=== PATIENT | female | born 1975 | race Caucasian/White ===

== ENCOUNTER → 2019-03-27 | Day surgery (SDC) | payer OTHER | END | disposition home or self-care (01) | LOC: JRADUS-SUR 07:51 | PROVIDERS: ATTEND Obstetrics & Gynecology | DX: Z53.8 Procedure and treatment not carried out for other reasons (principal) | CPT/HCPCS: 36415; 84702 ==

== ENCOUNTER 2020-03-13 13:32 | Emergency (ER) | payer OTHER ==
[2020-03-13 13:41] VITALS: BP 152/80; PULSE 100; TEMP 98; BMI 34.9
--- OUTSIDE RECORDS SUMMARY | 2020-03-13 13:56 | XMS ---
:1975 Author Organization [facility] Care Team Providers Name Role Phone Chumaceiro, Manuel Unavailable Unavailable Chumaceiro, Manuel Unavailable Unavailable Chumaceiro, Manuel Unavailable Unavailable Chumaceiro, Manuel Unavailable Unavailable Chumaceiro, Manuel Unavailable Unavailable Chumaceiro, Manuel Unavailable Unavailable Chumaceiro, Manuel Unavailable Unavailable Chumaceiro, Manuel Unavailable Unavailable Re-disclosure Warning The records that you are about to access may contain information from federally- assisted alcohol or drug abuse programs. If such information is present, then the following federally mandated warning applies: This information has been disclosed to you from records protected by federal confidentiality rules (42 CFR part 2). The federal rules prohibit you from making any further disclosure of this information unless further disclosure is expressly permitted by the written consent of the person to whom it pertains or as otherwise permitted by 42 CFR part 2. A general authorization for the release of medical or other information is NOT sufficient for this purpose. The Federal rules restrict any use of the information to criminally investigate or prosecute any alcohol or drug abuse patient.The records that you are about to access may contain highly sensitive health information, the redisclosure of which is protected by Article 27-F of the [place] Public Health law. If you continue you may haveaccess to information: Regarding HIV / AIDS; Provided by facilities licensed or operated by the [place] [facility] Office of Mental Health; or Provided by the [place] [facility] Office for People With Developmental Disabilities. If such information is present, then the following [place] [facility] mandated warning applies: This information has been disclosed to you from confidential records which are protected by state law. State law prohibits you from making any further disclosure of this information without the specific written consent of the person to whom it pertains, or as otherwise permitted by law. Any unauthorized further disclosure in violation of state law may result in a fine or halfway sentence or both. A general authorization for the release of medical or other information is NOT sufficient authorization for further disclosure. Allergies and Adverse Reactions Type Description Substance Reaction Status Data Source(s ) Drug allergy aspirin Aspirin Active [facility] ([facility], ) Encounters Encounter Providers Location Date Indications Data Source(s ) Attender: Manuel 02/24/2020 MED[facility] ([facility] 12:00:00 AM [facility], ) EDT Office Attender: Manuel 02/24/2020 12:00:00 AM EDT [facility] ([facility], ) Office Immunizations Vaccine Date Status Description Data Source(s) New in 2011. IIV4 03/24/2018 12:00:00 completed ME DGEN ([facility] EDT Medical, ) Medications Medication Brand Start Product Dose Route Administrative Pharmacy [facility] Indications Reaction Description Data Name Date Form Instructions Instructions Source(s) Dextrometho DEXTRO 07/15/ SYRUP 240 complet DEXTR OMETHOR MEDGEN ( rphan 3 METHOR 2019 ed SIMMS-PROMETH [facility] MG/ML / SIMMS-P 12:00: AZINE Medical , Promethazin ROMETH 00 AM PC) e AZINE: EST Hydrochlori [id number] de 1.25 MG/ML Oral Solution DEXTROMETHO RPHAN-PROME THAZINE:991 528 IPRATROPIUM 07/15/ SPRAY 1 complet IPRATRO PIUM MEDGEN (St NASAL:77485 2019 ed NASAL [facility] 44 12:00: Medical, 00 AM PC) EST Ergocalcife VITAMI 05/29/ complet VITAMI N D2 MEDGEN ( rol 71755 N 2016 ed [facility] UNT Oral D2:136 12:00: Medical , Capsule 7410 00 AM PC) VITAMIN EST D2:[id number] Insurance Providers Payer name Policy type Policy ID Covered Covered green party's Policy P radha / Coverage green party ID relationship to Peoples Inf ormation type peoples AFF[employer]ITY [id number] SP [id number] MEDICAID OF [id number] [place] [id number] 1 [id number] 500 HEALTH PLAN Problems, Conditions, and Diagnoses Code Display Name Description Problem Type Effective Data Sour ce(s) Dates J06.9 Acute upper ACUTE UPPER Problem 07/15/2019 MED[facility] ([facility] respiratory RESPIRATORY 12:00:00 AM [facility] infection, INFECTION, [facility], ) unspecified UNSPECIFIED D50.8 Other iron OTHER IRON Problem 10/24/2018 MEDGEN (St deficiency anemias DEFICIENCY ANEMIAS 12:00:00 AM [facility], ) B30.8 Other viral OTHER VIRAL Problem 04/23/2018 MEDGEN (St conjunctivitis CONJUNCTIVITIS 12:00:[address] [facility], ) Z23 Encounter for ENCOUNTER FOR Problem 03/24/2018 MEDGEN ( St immunization IMMUNIZATION 12:00:00 AM [facility], ) E55.9 Vitamin D VITAMIN D Problem 07/03/2017 MEDGEN ([address] deficiency, DEFICIENCY, 12:00:00 AM [facility] unspecified UNSPECIFIED [facility], ) D64.9 Anemia, unspecified ANEMIA, UNSPECIFIED Problem 017 MEDGEN (St 12:00:00 AM [facility], ) Z00.00 Encounter for ENCOUNTER FOR Problem 05/29/2017 MEDGEN ( St general adult GENERAL ADULT 12:00:00 AM [facility] medical examination MEDICAL EXAMINATION [facility], ) without abnormal WITHOUT ABNORMAL findings FINDINGS Surgeries/Procedures Procedure Description Date Indications Data Source(s) Documentation of current 02/24/2020 MED GEN ([facility] medications (procedure) 12:00:00 AM EDT [facility], ) OFFICE OUTPATIENT VISIT 02/24/2020 MEDG EN ([facility] 15 MINUTES 12:00:00 AM [facility], ) Documentation of current 11/12/2019 MED GEN ([facility] medications (procedure) 12:00:00 AM EDT [facility], ) Documentation of current 11/12/2019 MED GEN ([facility] medications (procedure) 12:00:00 AM EDT [facility], ) OFFICE OUTPATIENT VISIT 11/12/2019 MEDG EN ([facility] 15 MINUTES 12:00:00 AM [facility], ) COLLECTION VENOUS BLOOD 11/12/2019 MEDG EN ([facility] VENIPUNCTURE 12:00:00 AM [facility], ) Documentation of current 08/20/2019 MED GEN ([facility] medications (procedure) 12:00:00 AM EST Coco harper, ) Documentation of current 08/20/2019 MED GEN ([facility] medications (procedure) 12:00:00 AM LEANNE [facility], ) OFFICE OUTPATIENT VISIT 08/20/2019 MEDG EN ([facility] 15 MINUTES 12:00:00 AM [facility], ) INFLUENZA VACCINE 08/20/2019 MEDGEN ([facility] 12:00:00 AM [facility], ) IMADM PRQ ID SUBQ/IM NJXS 08/20/2019 ME DGEN ([facility] 1 VACCINE 12:00:00 AM [facility], ) COLLECTION VENOUS BLOOD 08/20/2019 MEDG EN ([facility] VENIPUNCTURE 12:00:00 AM [facility], ) Documentation of current 07/15/2019 MED GEN ([facility] medications (procedure) 12:00:00 AM LEANNE harper, ) Documentation of current 07/15/2019 MED GEN ([facility] medications (procedure) 12:00:00 AM LEANNE harper, ) Documentation of current 07/15/2019 MED GEN ([facility] medications (procedure) 12:00:00 AM EST [facility]oco [facility]per, ) Documentation of current 07/15/2019 MED GEN ([facility] medications (procedure) 12:00:00 AM LEANNE harper, ) Documentation of current 07/15/2019 MED GEN ([facility] medications (procedure) 12:00:00 AM EST [facility], ) OFFICE OUTPATIENT VISIT 07/15/2019 MEDG EN ([facility] 10 MINUTES 12:00:00 AM [facility], ) Documentation of current 05/06/2019 MED GEN ([facility] medications (procedure) 12:00:00 AM EST Coco harper, ) Documentation of current 05/06/2019 MED GEN ([facility] medications (procedure) 12:00:00 AM LEANNE harper, ) OFFICE OUTPATIENT VISIT 05/06/2019 MEDG EN ([facility] 10 MINUTES 12:00:00 AM EST Medical, ) Documentation of current 01/21/2019 MED GEN ([facility] medications (procedure) 12:00:00 AM [facility], ) Documentation of current 01/21/2019 MED GEN ([facility] medications (procedure) 12:00:00 AM ED[facility], ) Documentation of current 01/21/2019 MED GEN ([facility] medications (procedure) 12:00:00 AM [facility], ) OFFICE OUTPATIENT VISIT 01/21/2019 MEDG EN ([facility] 15 MINUTES 12:00:00 AM ED Medical, ) Documentation of current 10/24/2018 MED GEN ([facility] (procedure) [facility]00:[facility] Documentation of current 10/24/2018 MED GEN ([facility] medications (procedure) 12:00:00 AM EDT [facility], ) OFFICE OUTPATIENT VISIT 10/24/2018 MEDG EN ([facility] 25 MINUTES 12:00:00 AM ED Medical, ) COLLECTION VENOUS BLOOD 10/24/2018 MEDG EN ([facility] VENIPUNCTURE 12:00:00 AM ED Medical, ) Documentation of current 05/27/2018 MED GEN ([facility] medications (procedure) 12:00:00 AM EST edical, ) Documentation of current 05/27/2018 MED GEN ([facility] medications (procedure) 12:00:00 AM EST edical, ) OFFICE OUTPATIENT VISIT 05/27/2018 MEDG EN ([facility] 15 MINUTES 12:00:00 AM EST Medical, PC) COLLECTION VENOUS BLOOD 05/27/2018 MEDG EN ([facility] VENIPUNCTURE 12:00:00 AM EST Medical, PC) Documentation of current 04/23/2018 MED GEN ([facility] medications (procedure) 12:00:00 AM EST edical, ) OFFICE OUTPATIENT VISIT 04/23/2018 MEDG EN ([facility] 15 MINUTES 12:00:00 AM EST Medical, PC) Documentation of current 03/24/2018 MED GEN ([facility] medications (procedure) 12:00:00 AM EDT edical, PC) Documentation of current 03/24/2018 MED GEN ([facility] medications (procedure) 12:00:00 AM EDT [facility], ) OFFICE OUTPATIENT VISIT 03/24/2018 MEDG EN ([facility] 15 MINUTES 12:00:00 AM [facility], ) INFLUENZA VACCINE 03/24/2018 MEDGEN ([facility] 12:00:00 AM [facility], ) IMADM PRQ ID SUBQ/IM NJXS 03/24/2018 ME DGEN ([facility] 1 VACCINE 12:00:00 AM [facility], ) Documentation of current 07/03/2017 MED GEN ([facility] medications (procedure) 12:00:00 AM EST [facility], ) Documentation of current 07/03/2017 MED GEN ([facility] medications (procedure) 12:00:00 AM EST [facility], ) Documentation of current 07/03/2017 MED GEN ([facility] medications (procedure) 12:00:00 AM EST [facility], ) Documentation of current 07/03/2017 MED GEN ([facility] medications (procedure) 12:00:00 AM EST [facility], ) Documentation of current 07/03/2017 MED GEN ([facility] medications (procedure) 12:00:00 AM EST [facility], ) Documentation of current 07/03/2017 MED GEN ([facility] medications (procedure) 12:00:00 AM EST [facility], ) OFFICE OUTPATIENT VISIT 07/03/2017 MEDG EN ([facility] 15 MINUTES 12:00:00 AM [facility], ) Documentation of current 05/29/2017 MED GEN ([facility] medications (procedure) 12:00:00 AM EST [facility], ) Documentation of current 05/29/2017 MED GEN ([facility] medications (procedure) 12:00:00 AM EST [facility], ) Documentation of current 05/29/2017 MED GEN ([facility] medications (procedure) 12:00:00 AM EST [facility], ) COLLECTION VENOUS BLOOD 05/29/2017 MEDG EN ([facility] VENIPUNCTURE 12:00:00 AM [facility], ) Results ID Date Data Source [id number] 11/12/2019 12:00:00 AM EDT [facility] ([facility], ) Name Value Range Interpretation Description Data Sup porting Code Source(s) Document(s ) Iron 316 ug/dL Normal (applies to MEDGEN (St Bind.Cap.(TIBC non-numeric [facility] ) results) Medical, ) UIBC 293 ug/dL Normal (applies to MEDGEN (St non-numeric [facility] results) [facility], ) Iron 23 ug/dL Below low normal MEDGEN (St [Mass/volume] [facility] in Serum or Medical, ) Plasma Iron 7 % Below lower panic MEDGEN (St saturation limits [facility] [Mass [facility], ) Fraction] in Serum or Plasma ID Date Data Source [id number] 11/12/2019 12:00:00 AM EDT [facility] ([facility], ) Name Value Range Interpretation Description Data Sup porting Code Source(s) Document(s ) Leukocytes 6.5 Normal (applies MEDGEN (St [#/volume] in x10E3/uL to non-numeric [facility] Blood by results) Medical, ) Automated count Hemoglobin 12.0 Normal (applies MEDGEN (St [Mass/volume] in g/dL to non-numeric [facility] Blood results) [facility], ) Erythrocytes 4.29 Normal (applies MEDGEN (St [#/volume] in x10E6/uL to non-numeric [facility] Blood by results) [facility], ) Automated count Hematocrit 37.1 % Normal (applies MEDGEN (St [Volume to non-numeric [facility]'s Fraction] of results) [facility], ) Blood by Automated count MCV 87 fL Normal (applies MEDGEN (St to non-numeric [facility] results) [facility], ) MCH 28.0 pg Normal (applies MEDGEN (St to non-numeric [facility] results) Medical, ) RDW 15.0 % Normal (applies MEDGEN (St to non-numeric [facility] results) Medical, ) MCHC 32.3 Normal (applies MEDGEN (St g/dL to non-numeric [facility] results) [facility], ) Platelets 495 Above high normal MEDGEN (St [#/area] in x10E3/uL [facility] Blood by [facility], ) Microscopy high power field Neutrophils [#] 66 % Normal (applies MEDGEN ( St in Body fluid by to non-numeric [facility] Manual count results) [facility], ) Lymphs 25 % Normal (applies MEDGEN (St to non-numeric [facility]'s results) [facility], ) Eos 1 % Normal (applies MEDGEN (St to non-numeric [facility]'s results) [facility], ) Monocytes 8 % Normal (applies MEDGEN (St [#/volume] in to non-numeric [facility] Cord blood results) [facility]) Basos 0 % Normal (applies MEDGEN (St to non-numeric [facility] results) [facility]) Neutrophils 4.3 Normal (applies MEDGEN (St (Absolute) x10E3/uL to non-numeric [facility] results) [facility], ) Lymphs 1.6 Normal (applies MEDGEN (St (Absolute) x10E3/uL to non-numeric [facility] results) [facility]) Monocytes(Absolu 0.5 Normal (applies MEDGEN (St te) x10E3/uL to non-numeric [facility] results) [facility]) Eos (Absolute) 0.1 Normal (applies MEDGEN (S t x10E3/uL to non-numeric [facility] results) [facility], ) Immature 0 % Normal (applies MEDGEN (St Granulocytes to non-numeric Y[facility]'s results) [facility]) Baso (Absolute) 0.0 Normal (applies MEDGEN ( St x10E3/uL to non-numeric [facility] results) [facility]) Immature Grans 0.0 Normal (applies MEDGEN (S t (Abs) x10E3/uL to non-numeric [facility] results) [facility]) ID Date Data Source [id number] 08/20/2019 12:00:00 AM EST MED[facility] ([facility]) Name Value Range Interpretation Description Data Sup porting Code Source(s) Document(s ) Vitamin D, 16.6 Below low normal MEDGEN (St 25-Hydroxy ng/mL [facility]) ID Date Data Source [id number] 08/20/2019 12:00:00 AM EST [facility] ([facility]) Name Value Range Interpretation Description Data Sup porting Code Source(s) Document(s ) Iron 378 ug/dL Normal (applies to MEDGEN (St Bind.Cap.(TIBC non-numeric [facility]'s ) results) [facility], ) UIBC 358 ug/dL Normal (applies to MEDGEN (St non-numeric [facility] results) [facility]) Iron 20 ug/dL Below low normal MEDGEN (St [Mass/volume] [facility] in Serum or Medical, ) Plasma Iron 5 % Below lower panic MEDGEN (St saturation limits [facility] [[facility], ) Fraction] in Serum or Plasma ID Date Data Source [id number] 08/20/2019 12:00:00 AM EST [facility] ([facility], ) Name Value Range Interpretation Description Data Sup porting Code Source(s) Document(s ) Leukocytes 5.7 Normal (applies MEDGEN (St [#/volume] in x10E3/uL to non-numeric [facility] Blood by results) Medical, ) Automated count Hemoglobin 10.0 Below low normal MEDGEN (St [Mass/volume] in g/dL [facility] Blood [facility], ) Erythrocytes 3.92 Normal (applies MEDGEN (St [#/volume] in x10E6/uL to non-numeric [facility] Blood by results) [facility], ) Automated count Hematocrit 31.2 % Below low normal MEDGEN (St [Volume [facility] Fraction] of [facility], ) Blood by Automated count MCH 25.5 pg Below low normal MEDGEN ([facility], ) MCV 80 fL Normal (applies MEDGEN (St to non-numeric [facility]'s results) [facility], ) RDW 15.3 % Normal (applies MEDGEN (St to non-numeric [facility] results) [facility], ) MCHC 32.1 Normal (applies MEDGEN (St g/dL to non-numeric [facility] results) [facility], ) Platelets 396 Normal (applies MEDGEN (St [#/area] in x10E3/uL to non-numeric [facility] Blood by results) [facility], ) Microscopy high power field Lymphs 28 % Normal (applies MEDGEN (St to non-numeric [facility] results) [facility], ) Neutrophils [#] 63 % Normal (applies MEDGEN ( St in Body fluid by to non-numeric [facility] Manual count results) [facility], ) Monocytes 6 % Normal (applies MEDGEN (St [#/volume] in to non-numeric [facility] Cord blood results) [facility], ) Eos 3 % Normal (applies MEDGEN (St to non-numeric [facility] results) [facility], ) Basos 0 % Normal (applies MEDGEN (St to non-numeric [facility]'s results) [facility], ) Neutrophils 3.6 Normal (applies MEDGEN (St (Absolute) x10E3/uL to non-numeric [facility] results) [facility], ) Lymphs 1.6 Normal (applies MEDGEN (St (Absolute) x10E3/uL to non-numeric [facility]'s results) [facility], ) Monocytes(Absolu 0.3 Normal (applies MEDGEN (St te) x10E3/uL to non-numeric [facility] results) [facility], ) Baso (Absolute) 0.0 Normal (applies MEDGEN ( St x10E3/uL to non-numeric [facility]'s results) [facility], ) Eos (Absolute) 0.2 Normal (applies MEDGEN (S t x10E3/uL to non-numeric [facility] results) [facility], ) Immature Grans 0.0 Normal (applies MEDGEN (S t (Abs) x10E3/uL to non-numeric [facility] results) [facility], ) Immature 0 % Normal (applies MEDGEN (St Granulocytes to non-numeric [facility] results) [facility], ) ID Date Data Source [id number] 01/21/2019 12:00:00 AM EDT [facility] ([facility], ) Name Value Range Interpretation Description Data Sup porting Code Source(s) Document(s ) Leukocytes 7.7 Normal (applies MEDGEN (St [#/volume] in x10E3/uL to non-numeric [facility] Blood by results) [facility], ) Automated count Erythrocytes 4.01 Normal (applies MEDGEN (St [#/volume] in x10E6/uL to non-numeric [facility] Blood by results) [facility], ) Automated count Hemoglobin 10.5 Below low normal MEDGEN (St [Mass/volume] in g/dL [facility] Blood [facility], ) Hematocrit 33.2 % Below low normal MEDGEN (St [Volume [facility] Fraction] of [facility], ) Blood by Automated count MCV 83 fL Normal (applies MEDGEN (St to non-numeric [facility]'s results) [facility], ) MCH 26.2 pg Below low normal MED[facility] ([facility], ) MCHC 31.6 Normal (applies MEDGEN (St g/dL to non-numeric Y[facility]'s results) [facility], ) RDW 14.7 % Normal (applies MEDGEN (St to non-numeric [facility] results) Medical, ) Neutrophils [#] 64 % Normal (applies MEDGEN ( St in Body fluid by to non-numeric [facility] Manual count results) [facility], ) Platelets 409 Normal (applies MEDGEN (St [#/area] in x10E3/uL to non-numeric [facility] Blood by results) [facility], ) Microscopy high power field Lymphs 26 % Normal (applies MEDGEN (St to non-numeric Y[facility]'s results) [facility], ) Eos 1 % Normal (applies MEDGEN (St to non-numeric [facility]'s results) [facility], ) Monocytes 9 % Normal (applies MEDGEN (St [#/volume] in to non-numeric [facility] Cord blood results) [facility], ) Basos 0 % Normal (applies MEDGEN (St to non-numeric [facility]'s results) [facility], ) Neutrophils 4.9 Normal (applies MEDGEN (St (Absolute) x10E3/uL to non-numeric [facility] results) [facility], ) Lymphs 2.0 Normal (applies MEDGEN (St (Absolute) x10E3/uL to non-numeric [facility] results) [facility], ) Monocytes(Absolu 0.7 Normal (applies MEDGEN (St te) x10E3/uL to non-numeric [facility] results) [facility], ) Eos (Absolute) 0.1 Normal (applies MEDGEN (S t x10E3/uL to non-numeric [facility]'s results) [facility], ) Immature 0 % Normal (applies MEDGEN (St Granulocytes to non-numeric [facility]'s results) [facility], ) Baso (Absolute) 0.0 Normal (applies MEDGEN ( St x10E3/uL to non-numeric [facility]'s results) [facility], ) Immature Grans 0.0 Normal (applies MEDGEN (S t (Abs) x10E3/uL to non-numeric [facility] results) [facility], ) ID Date Data Source [id number] 10/24/2018 12:00:00 AM EDT [facility] ([facility], ) Name Value Range Interpretation Description Data Sup porting Code Source(s) Document(s ) Vitamin D, 14.8 Below low normal MEDGEN (St 25-Hydroxy ng/mL [facility]) ID Date Data Source [id number] 10/24/2018 12:00:00 AM EDT [facility] ([facility], ) Name Value Range Interpretation Code Description Data Viola rce(s) Supporting Document(s ) TSH 0.844 Normal (applies to MEDGEN (St uIU/mL non-numeric results) [facility], ) ID Date Data Source [id number] 10/24/2018 12:00[facility]00 [facility], ) Name Value Range Interpretation Description Data Sup porting Code Source(s) Document(s ) Vitamin B12 263 pg/mL Normal (applies to MEDGEN (S t non-numeric [facility]'s results) Medical, PC) Folate 9.8 ng/mL Normal (applies to MEDGEN (St (Folic non-numeric [facility] Acid), Serum results) Medical, PC) ID Date Data Source [id number] 10/24/2018 12:00:00 AM [facility], ) Name Value Range Interpretation Description Data Sup porting Code Source(s) Document(s ) Iron 351 ug/dL Normal (applies to MEDGEN (St Bind.Cap.(TIBC non-numeric [facility]'s ) results) Medical, PC) UIBC 317 ug/dL Normal (applies to MEDGEN (St non-numeric [facility] results) Medical, PC) Iron 34 ug/dL Normal (applies to MEDGEN (St [Mass/volume] non-numeric [facility] in Serum or results) Medical, PC) Plasma Iron 10 % Below low normal [facility] (St saturation [facility] [[facility], ) Fraction] in Serum or Plasma ID Date Data Source [id number] 10/24/2018 12:00:00 AM [facility], ) Name Value Range Interpretation Description Data Sup porting Code Source(s) Document(s ) Glucose 86 mg/dL Normal (applies MEDGEN (St [Mass/volume] in to non-numeric [facility] Urine collected for results) Medical, unspecified ) duration Urea nitrogen 18 mg/dL Normal (applies MEDGEN (St [Mass/volume] in to non-numeric [facility] Serum or Plasma results) Medical, PC) Creatinine 0.78 Normal (applies MEDGEN (St [Interpretation] in mg/dL to non-numeric Yohan' s Urine results) Medical, PC) eGFR If NonAfricn 93 Normal (applies MEDGEN (St Am mL/min/1 to non-numeric [facility]'s .73 results) Medical, PC) BUN/Creatinine 23 Normal (applies MEDGEN (S t Ratio to non-numeric [facility] results) Medical, PC) eGFR If Africn Am 107 Normal (applies MEDGEN (St mL/min/1 to non-numeric [facility] .73 results) Medical, PC) Potassium 4.6 Normal (applies MEDGEN (St [Mass/volume] in mmol/L to non-numeric [facility] Blood results) Medical, PC) Sodium 141 Normal (applies MEDGEN (St [Moles/volume] in mmol/L to non-numeric [facility] Serum or Plasma results) Medical, PC) Chloride 102 Normal (applies MEDGEN (St [Moles/volume] in mmol/L to non-numeric [facility] Serum or Plasma results) Medical, PC) Carbon dioxide, 23 Normal (applies MEDGEN ( St total mmol/L to non-numeric [facility] [Moles/volume] in results) Medical, Serum or Plasma PC) Calcium 9.5 Normal (applies MEDGEN (St [Moles/volume] in mg/dL to non-numeric [facility] Urine collected for results) Medical, unspecified PC) duration Microalbumin 4.4 g/dL Normal (applies MEDGEN (St [Mass/time] in to non-numeric [facility] Urine collected for results) Medical, unspecified PC) duration Protein 7.5 g/dL Normal (applies MEDGEN (St [Mass/volume] in to non-numeric [facility]'s Serum or Plasma results) Medical, ) Globulin, Total 3.1 g/dL Normal (applies MEDGEN ( St to non-numeric Y[facility]'s results) Medical, PC) A/G Ratio 1.4 Normal (applies MEDGEN (St to non-numeric Y[facility]'s results) Medical, PC) Bilirubin.total <0.2 Normal (applies MEDGEN ( St [Mass/volume] in to non-numeric [facility]'s Serum or Plasma results) Medical, PC) Aspartate 18 IU/L Normal (applies MEDGEN (St aminotransferase to non-numeric Yohan's [Enzymatic results) Medical, activity/volume] in PC) Serum or Plasma Alkaline 70 IU/L Normal (applies MEDGEN (St phosphatase to non-numeric Yohan's [Enzymatic results) Medical, activity/volume] in ) Serum, Plasma or Blood Alanine 11 IU/L Normal (applies MEDGEN (St aminotransferase to non-numeric Yohan's [Enzymatic results) Medical, activity/volume] in ) Serum or Plasma ID Date Data Source [id number] 10/24/2018 12:00:00 AM EDT [facility] ([facility], ) Name Value Range Interpretation Description Data Sup porting Code Source(s) Document(s ) Erythrocytes 3.77 Normal (applies MEDGEN (St [#/volume] in x10E6/uL to non-numeric [facility]'s Blood by results) Medical, ) Automated count Leukocytes 6.9 Normal (applies MEDGEN (St [#/volume] in x10E3/uL to non-numeric [facility] Blood by results) Medical, ) Automated count Hemoglobin 11.0 Below low normal MEDGEN (St [Mass/volume] in g/dL [facility] Blood Medical, ) Hematocrit 33.8 % Below low normal MEDGEN (St [Volume Yohan's Fraction] of [facility], ) Blood by Automated count MCV 90 fL Normal (applies MEDGEN (St to non-numeric Y[facility]'s results) Medical, ) MCHC 32.5 Normal (applies MEDGEN (St g/dL to non-numeric Yohan's results) [facility], ) MCH 29.2 pg Normal (applies MEDGEN (St to non-numeric Yohan's results) [facility], ) Platelets 471 Above high normal MEDGEN (St [#/area] in x10E3/uL [facility] Blood by Medical, ) Microscopy high power field RDW 14.8 % Normal (applies MEDGEN (St to non-numeric Y[facility]'s results) Medical, ) Neutrophils [#] 65 % Normal (applies MEDGEN ( St in Body fluid by to non-numeric [facility]'s Manual count results) Medical, ) Monocytes 5 % Normal (applies MEDGEN (St [#/volume] in to non-numeric Yohan's Cord blood results) [facility], ) Lymphs 29 % Normal (applies MEDGEN (St to non-numeric Yohan's results) Medical, ) Eos 1 % Normal (applies MEDGEN (St to non-numeric Yohan's results) Medical, ) Basos 0 % Normal (applies MEDGEN (St to non-numeric Y[facility]'s results) Medical, ) Neutrophils 4.5 Normal (applies MEDGEN (St (Absolute) x10E3/uL to non-numeric Yohan's results) [facility]) Lymphs 2.0 Normal (applies MEDGEN (St (Absolute) x10E3/uL to non-numeric Yohan's results) [facility]) Monocytes(Absolu 0.3 Normal (applies MEDGEN (St te) x10E3/uL to non-numeric Yohan's results) [facility]) Eos (Absolute) 0.1 Normal (applies MEDGEN (S t x10E3/uL to non-numeric Yohan's results) [facility]) Baso (Absolute) 0.0 Normal (applies MEDGEN ( St x10E3/uL to non-numeric Yohan's results) [facility]) Immature 0 % Normal (applies MEDGEN (St Granulocytes to non-numeric Yohan's results) [facility]) Immature Grans 0.0 Normal (applies MEDGEN (S t (Abs) x10E3/uL to non-numeric Y[facility]'s results) [facility]) ID Date Data Source [id number] 06/06/2018 12:00:00 AM EST [facility] ([facility], ) Name Value Range Interpretation Description Data Sup porting Code Source(s) Document(s ) Leukocytes 9.5 Normal (applies MEDGEN (St [#/volume] in x10E3/uL to non-numeric [facility] Blood by results) [facility]) Automated count Erythrocytes 3.96 Normal (applies MEDGEN (St [#/volume] in x10E6/uL to non-numeric [facility]'s Blood by results) [facility], ) Automated count Hemoglobin 9.8 g/dL Below low normal MEDGEN (St [Mass/volume] in [facility]'s Blood [facility]) Hematocrit 31.2 % Below low normal MEDGEN (St [Volume Yohan's Fraction] of [facility]) Blood by Automated count MCV 79 fL Normal (applies MEDGEN (St to non-numeric Yohan's results) [facility]) MCH 24.7 pg Below low normal MEDGEN ([facility], ) MCHC 31.4 Below low normal MEDGEN (St g/dL [facility]) RDW 15.7 % Above high normal MEDGEN ([facility]) Platelets 500 Above high normal MEDGEN (St [#/area] in x10E3/uL Y[facility]'s Blood by [facility], ) Microscopy high power field Lymphs 20 % Normal (applies MEDGEN (St to non-numeric Yohan's results) Medical, ) Neutrophils [#] 71 % Normal (applies MEDGEN ( St in Body fluid by to non-numeric Y[facility]'s Manual count results) [facility], ) Monocytes 7 % Normal (applies MEDGEN (St [#/volume] in to non-numeric Yohan's Cord blood results) Medical, ) Eos 2 % Normal (applies MEDGEN (St to non-numeric Yohan's results) Medical, ) Basos 0 % Normal (applies MEDGEN (St to non-numeric Yohan's results) [facility], ) Neutrophils 6.6 Normal (applies MEDGEN (St (Absolute) x10E3/uL to non-numeric Yohan's results) Medical, ) Lymphs 1.9 Normal (applies MEDGEN (St (Absolute) x10E3/uL to non-numeric Y[facility]'s results) Medical, ) Monocytes(Absolu 0.7 Normal (applies MEDGEN (St te) x10E3/uL to non-numeric Y[facility]'s results) Medical, ) Baso (Absolute) 0.0 Normal (applies MEDGEN ( St x10E3/uL to non-numeric Yohan's results) [facility], ) Eos (Absolute) 0.2 Normal (applies MEDGEN (S t x10E3/uL to non-numeric Yohan's results) Medical, ) Immature Grans 0.0 Normal (applies MEDGEN (S t (Abs) x10E3/uL to non-numeric Yohan's results) [facility], ) Immature 0 % Normal (applies MEDGEN (St Granulocytes to non-numeric Yohan's results) [facility], ) ID Date Data Source [id number] 05/27/2018 12:00:00 AM EST [facility] ([facility], ) Name Value Range Interpretation Description Data Sup porting Code Source(s) Document(s ) Vitamin D, 16.6 Below low normal MEDGEN (St 25-Hydroxy ng/mL [facility]) ID Date Data Source [id number] 05/27/2018 12:00:00 AM EST [facility] ([facility], ) Name Value Range Interpretation Description Data Sup porting Code Source(s) Document(s ) Cholesterol 184 Normal (applies MEDGEN (St [Mass/volume] in mg/dL to non-numeric Y[facility]'s Serum or Plasma results) Medical, ) Triglyceride 207 Above high normal MEDGEN (S t [Mass/volume] in mg/dL [facility]'s Serum or Plasma [facility], PC) HDL Cholesterol 35 mg/dL Below low normal MEDGEN ([facility], ) VLDL Cholesterol 41 mg/dL Above high normal MEDGE N ([facility], ) LDL Cholesterol 108 Above high normal MEDGEN (St Calc mg/dL [facility], ) ID Date Data Source [id number] 05/27/2018 12:00:00 AM EST MEDGEN ([facility]) Name Value Range Interpretation Description Data Sup porting Code Source(s) Document(s ) Glucose 93 mg/dL Normal (applies MEDGEN (St [Mass/volume] in to non-numeric [facility] Urine collected for results) Medical, unspecified PC) duration Urea nitrogen 12 mg/dL Normal (applies MEDGEN (St [Mass/volume] in to non-numeric Y[facility]'s Serum or Plasma results) Medical, PC) Creatinine 0.55 Below low normal MEDGEN (St [Interpretation] in mg/dL [facility]'s Urine [facility], ) eGFR If Africn Am 132 Normal (applies MEDGEN (St mL/min/1 to non-numeric Yohan's .73 results) Medical, PC) eGFR If NonAfricn 114 Normal (applies MEDGEN (St Am mL/min/1 to non-numeric Yohan's .73 results) Medical, PC) BUN/Creatinine 22 Normal (applies MEDGEN (S t Ratio to non-numeric Yohan's results) Medical, PC) Potassium 4.4 Normal (applies MEDGEN (St [Mass/volume] in mmol/L to non-numeric [facility] Blood results) Medical, PC) Sodium 139 Normal (applies MEDGEN (St [Moles/volume] in mmol/L to non-numeric [facility]'s Serum or Plasma results) Medical, PC) Chloride 102 Normal (applies MEDGEN (St [Moles/volume] in mmol/L to non-numeric Y[facility]'s Serum or Plasma results) Medical, ) Carbon dioxide, 21 Normal (applies MEDGEN ( St total mmol/L to non-numeric Yohan's [Moles/volume] in results) Medical, Serum or Plasma PC) Calcium 9.1 Normal (applies MEDGEN (St [Moles/volume] in mg/dL to non-numeric [facility] Urine collected for results) Medical, unspecified PC) duration Protein 7.1 g/dL Normal (applies MEDGEN (St [Mass/volume] in to non-numeric Y[facility]'s Serum or Plasma results) Medical, ) Microalbumin 4.2 g/dL Normal (applies MEDGEN (St [Mass/time] in to non-numeric [facility]'s Urine collected for results) Medical, unspecified PC) duration Globulin, Total 2.9 g/dL Normal (applies MEDGEN ( St to non-numeric Yohan's results) Medical, ) A/G Ratio 1.4 Normal (applies MEDGEN (St to non-numeric Yohan's results) Medical, ) Bilirubin.total 0.2 Normal (applies MEDGEN ( St [Mass/volume] in mg/dL to non-numeric Y[facility]'s Serum or Plasma results) Medical, ) Aspartate 26 IU/L Normal (applies MEDGEN (St aminotransferase to non-numeric Yohan's [Enzymatic results) Medical, activity/volume] in PC) Serum or Plasma Alkaline 70 IU/L Normal (applies MEDGEN (St phosphatase to non-numeric Yohan's [Enzymatic results) Medical, activity/volume] in PC) Serum, Plasma or Blood Alanine 13 IU/L Normal (applies MEDGEN (St aminotransferase to non-numeric Yohan's [Enzymatic results) Medical, activity/volume] in PC) Serum or Plasma ID Date Data Source [id number] 05/27/2018 12:00:00 AM EST [facility] ([facility], ) Name Value Range Interpretation Description Data Sup porting Code Source(s) Document(s ) Leukocytes 6.9 Normal (applies MEDGEN (St [#/volume] in x10E3/uL to non-numeric [facility]'s Blood by results) Medical, ) Automated count Erythrocytes 3.80 Normal (applies MEDGEN (St [#/volume] in x10E6/uL to non-numeric [facility]'s Blood by results) Medical, ) Automated count Hematocrit 30.8 % Below low normal MEDGEN (St [Volume Yohan's Fraction] of Medical, ) Blood by Automated count Hemoglobin 9.7 g/dL Below low normal MEDGEN (St [Mass/volume] in Yohan's Blood [facility], ) MCV 81 fL Normal (applies MEDGEN (St to non-numeric Yohan's results) [facility]) MCH 25.5 pg Below low normal MEDGEN ([facility], ) MCHC 31.5 Normal (applies MEDGEN (St g/dL to non-numeric Yohan's results) [facility]) RDW 15.9 % Above high normal MEDGEN ([facility], ) Platelets 435 Above high normal MEDGEN (St [#/area] in x10E3/uL Y[facility]'s Blood by [facility], ) Microscopy high power field Lymphs 21 % Normal (applies MEDGEN (St to non-numeric Yohan's results) [facility], ) Neutrophils [#] 70 % Normal (applies MEDGEN ( St in Body fluid by to non-numeric Yohan's Manual count results) [facility], ) Monocytes 7 % Normal (applies MEDGEN (St [#/volume] in to non-numeric Yohan's Cord blood results) [facility], ) Eos 2 % Normal (applies MEDGEN (St to non-numeric Yohan's results) [facility], ) Basos 0 % Normal (applies MEDGEN (St to non-numeric Yohan's results) [facility], ) Lymphs 1.5 Normal (applies MEDGEN (St (Absolute) x10E3/uL to non-numeric Yohan's results) [facility]) Neutrophils 4.8 Normal (applies MEDGEN (St (Absolute) x10E3/uL to non-numeric Yohan's results) [facility], ) Monocytes(Absolu 0.5 Normal (applies MEDGEN (St te) x10E3/uL to non-numeric Yohan's results) [facility]) Eos (Absolute) 0.2 Normal (applies MEDGEN (S t x10E3/uL to non-numeric Yohan's results) [facility], ) Baso (Absolute) 0.0 Normal (applies MEDGEN ( St x10E3/uL to non-numeric Yohan's results) [facility]) Immature Grans 0.0 Normal (applies MEDGEN (S t (Abs) x10E3/uL to non-numeric Yohan's results) [facility], ) Immature 0 % Normal (applies MEDGEN (St Granulocytes to non-numeric Yohan's results) [facility]) ID Date Data Source [id number] 05/29/2017 12:00:00 AM EST [facility] ([facility], ) Name Value Range Interpretation Description Data Sup porting Code Source(s) Document(s ) HIV Screen Non Normal (applies MEDGEN (St 4th Reactive to non-numeric Yohan's Generation results) Medical, ) wRfx ID Date Data Source [id number] 05/29/2017 12:00:00 AM EST MEDGEN ([facility], ) Name Value Range Interpretation Description Data Sup porting Code Source(s) Document(s ) Vitamin D, 24.9 Below low normal MEDGEN (St 25-Hydroxy ng/mL [facility]'s [facility], ) ID Date Data Source [id number] 05/29/2017 12:00:00 AM EST MED[facility] ([facility], ) Name Value Range Interpretation Description Data Sup porting Code Source(s) Document(s ) Hemoglobin 4.9 % Normal (applies to MEDGEN (St A1c/Hemoglobin. non-numeric Yohan's total in Blood results) Medical, ) ID Date Data Source [id number] 05/29/2017 12:00:00 AM EST [facility] ([facility], ) Name Value Range Interpretation Description Data Sup porting Code Source(s) Document(s ) Folate >20.0 Normal (applies to MEDGEN (St (Folic non-numeric Yohan's Acid), Serum results) Medical, ) Vitamin B12 375 pg/mL Normal (applies to MEDGEN (S t non-numeric Yohan's results) Medical, ) ID Date Data Source [id number] 05/29/2017 12:00:00 AM EST MED[facility] ([facility], ) Name Value Range Interpretation Description Data Sup porting Code Source(s) Document(s ) Bilirubin.c 0.06 mg/dL Normal (applies to MEDGEN ( St onjugated non-numeric Yohan's [Mass/volum results) Medical, ) e] in Serum or Plasma ID Date Data Source [id number] 05/29/2017 12:00:00 AM EST [facility] ([facility], ) Name Value Range Interpretation Description Data Sup porting Code Source(s) Document(s ) Cholesterol 197 Normal (applies MEDGEN (St [Mass/volume] in mg/dL to non-numeric Y[facility]'s Serum or Plasma results) Medical, ) Triglyceride 182 Above high normal MEDGEN (S t [Mass/volume] in mg/dL Y[facility]'s Serum or Plasma Medical, ) HDL Cholesterol 37 mg/dL Below low normal [facility] ([facility], ) VLDL Cholesterol 36 mg/dL Normal (applies MEDGEN (St [place] to non-numeric Yohan's results) Medical, PC) LDL Cholesterol 124 Above high normal MEDGEN (St Calc mg/dL [facility], ) ID Date Data Source [id number] 05/29/2017 12:00:00 AM EST MEDGEN (St [facility], ) Name Value Range Interpretation Description Data Sup porting Code Source(s) Document(s ) Specific gravity 1.029 Normal (applies MEDGEN (St of Pericardial to non-numeric Yohan's fluid by results) Medical, Refractometry PC) pH of Lower 5.5 Normal (applies MEDGEN (St respiratory to non-numeric Yohan's specimen results) Medical, ) Urine-Color Yellow Normal (applies MEDGEN (St to non-numeric Yohan's results) Medical, PC) Appearance of Cloudy Abnormal (applies MEDGEN ( St Abdomen to non-numeric Yohan's results) Medical, PC) WBC Esterase Negative Normal (applies MEDGEN (St to non-numeric Yohan's results) Medical, PC) Glucose Negative Normal (applies MEDGEN (St [Mass/volume] in to non-numeric Y[facility]'s Urine collected results) Medical, for unspecified PC) duration Protein Negative Normal (applies MEDGEN (St [Mass/volume] in to non-numeric Yohan's Lower results) Medical, respiratory PC) specimen Ketones Negative Normal (applies MEDGEN (St [Presence] in to non-numeric Yohan's Blood by Tablet results) Medical, ) Bilirubin Negative Normal (applies MEDGEN (St [Presence] in to non-numeric Yohan's Peritoneal fluid results) Medical, PC) Occult Blood Negative Normal (applies MEDGEN (St to non-numeric Yohan's results) Medical, ) Urobilinogen,Bautista 0.2 EU/dL Normal (applies MEDGEN (St i-Qn to non-numeric Yohan's results) Medical, PC) Nitrite, Urine Negative Normal (applies MEDGEN (S t to non-numeric Yohan's results) Medical, PC) Microscopic Normal (applies MEDGEN (St Examination to non-numeric Yohan's results) Medical, ) ID Date Data Source [id number] 05/29/2017 12:00:00 AM EST [facility] ([facility], ) Name Value Range Interpretation Description Data Sup porting Code Source(s) Document(s ) Glucose, Serum 92 mg/dL Normal (applies MEDGEN (S t to non-numeric Yohan's results) Medical, ) Urea nitrogen 17 mg/dL Normal (applies MEDGEN (St [Mass/volume] in to non-numeric Yohan's Serum or Plasma results) Medical, ) Creatinine, Serum 0.61 Normal (applies MEDGEN (St mg/dL to non-numeric Yohan's results) Medical, ) eGFR If NonAfricn 111 Normal (applies MEDGEN (St Am mL/min/1 to non-numeric Yohan's .73 results) Medical, ) eGFR If Africn Am 128 Normal (applies MEDGEN (St mL/min/1 to non-numeric Yohan's .73 results) Medical, ) Sodium 139 Normal (applies MEDGEN (St [Moles/volume] in mmol/L to non-numeric Yohan's Serum or Plasma results) Medical, ) BUN/Creatinine 28 Above high MEDGEN (St Ratio normal [facility] Medical, ) Potassium, Serum 4.3 Normal (applies MEDGEN (St mmol/L to non-numeric Yohan's results) Medical, PC) Chloride 101 Normal (applies MEDGEN (St [Moles/volume] in mmol/L to non-numeric Y[facility]'s Serum or Plasma results) Medical, ) Carbon dioxide, 21 Normal (applies MEDGEN ( St total mmol/L to non-numeric Yohan's [Moles/volume] in results) Medical, Serum or Plasma PC) Protein 7.5 g/dL Normal (applies MEDGEN (St [Mass/volume] in to non-numeric Yohan's Serum or Plasma results) Medical, ) Calcium, Serum 9.2 Normal (applies MEDGEN (S t mg/dL to non-numeric Yohan's results) Medical, ) Albumin, Serum 4.5 g/dL Normal (applies MEDGEN (S t to non-numeric Yohan's results) Medical, ) Globulin, Total 3.0 g/dL Normal (applies MEDGEN ( St to non-numeric Yohan's results) Medical, ) A/G Ratio 1.5 Normal (applies MEDGEN (St to non-numeric Yohan's results) Medical, ) Bilirubin.total <0.2 Normal (applies MEDGEN ( St [Mass/volume] in to non-numeric Yohan's Serum or Plasma results) Medical, ) Aspartate 19 IU/L Normal (applies MEDGEN (St aminotransferase to non-numeric Yohan's [Enzymatic results) Medical, activity/volume] in ) Serum or Plasma Alkaline 75 IU/L Normal (applies MEDGEN (St Phosphatase, S to non-numeric Yohan's results) Medical, ) Alanine 5 IU/L Normal (applies MEDGEN (St aminotransferase to non-numeric Yohan's [Enzymatic results) Medical, activity/volume] in ) Serum or Plasma ID Date Data Source [id number] 05/29/2017 12:00:00 AM EST [facility] ([facility], ) Name Value Range Interpretation Description Data Sup porting Code Source(s) Document(s ) Leukocytes 6.5 Normal (applies MEDGEN (St [#/volume] in x10E3/uL to non-numeric Yohan's Blood by results) Medical, ) Automated count Erythrocytes 4.38 Normal (applies MEDGEN (St [#/volume] in x10E6/uL to non-numeric Yohan's Blood by results) Medical, ) Automated count Hematocrit 37.2 % Normal (applies MEDGEN (St [Volume to non-numeric Yohan's Fraction] of results) Medical, ) Blood by Automated count Hemoglobin 12.0 Normal (applies MEDGEN (St [Mass/volume] in g/dL to non-numeric Yohan's Blood results) Medical, ) MCH 27.4 pg Normal (applies MEDGEN (St to non-numeric Yohan's results) Medical, ) MCV 85 fL Normal (applies MEDGEN (St to non-numeric Yohan's results) Medical, ) MCHC 32.3 Normal (applies MEDGEN (St g/dL to non-numeric Yohan's results) Medical, ) RDW 15.2 % Normal (applies MEDGEN (St to non-numeric Yohan's results) Medical, ) Platelets 510 Above high normal MEDGEN (St [#/area] in x10E3/uL [facility]'s Blood by Medical, ) Microscopy high power field Lymphs 31 % Normal (applies MEDGEN (St to non-numeric Yohan's results) Medical, ) Neutrophils [#] 61 % Normal (applies MEDGEN ( St in Body fluid by to non-numeric Y[facility]'s Manual count results) Medical, ) Monocytes 7 % Normal (applies MEDGEN (St [#/volume] in to non-numeric Yohan's Cord blood results) Medical, ) Eos 1 % Normal (applies MEDGEN (St to non-numeric Yohan's results) Medical, ) Basos 0 % Normal (applies MEDGEN (St to non-numeric Yohan's results) Medical, ) Neutrophils 4.0 Normal (applies MEDGEN (St (Absolute) x10E3/uL to non-numeric Yohan's results) Medical, ) Monocytes(Absolu 0.5 Normal (applies MEDGEN (St te) x10E3/uL to non-numeric Yohan's results) Medical, ) Lymphs 2.0 Normal (applies MEDGEN (St (Absolute) x10E3/uL to non-numeric Yohan's results) Medical, ) Eos (Absolute) 0.1 Normal (applies MEDGEN (S t x10E3/uL to non-numeric Yohan's results) Medical, ) Baso (Absolute) 0.0 Normal (applies MEDGEN ( St x10E3/uL to non-numeric Yohan's results) Medical, ) Immature 0 % Normal (applies MEDGEN (St Granulocytes to non-numeric Yohan's results) Medical, ) Immature Grans 0.0 Normal (applies MEDGEN (S t (Abs) x10E3/uL to non-numeric Yohan's results) Medical, ) Procedure Social History Code Duration Value Status Description Data Source(s ) Smoking 02/24/2020 former smoker 7+ completed former smoker 7+ ME DGEN (St 12:00:00 AM EDT years ago drinks years ago [facility], occasionally occasionally ) Smoking 02/24/2020 Unknown if ever completed Unknown if ever MEDG EN (St 12:00:00 AM EDT smoked smoked [facility], ) Vital Signs ID Date Data Source UNK Name Value Range Interpretation Code Description Data Source(s) Body mass index 35.1 kg/m2 35.1 kg/m2 MEDGEN (S t (BMI) [Ratio] [facility]) Diastolic blood 82 mm[Hg] 82 mm[Hg] MEDGEN (S t pressure [facility]) Systolic blood 118 mm[Hg] 118 mm[Hg] MEDGEN ([facility]) Body weight 211 lb 211 lb MEDGEN ([facility]) Body height 65 in 65 in MEDGEN ([facility]) Heart rate 78 /min 78 /min MEDGEN ([facility]) Body temperature 98 F 98 F MEDGEN ( [facility]) Inhaled oxygen 99 % 99 % MEDGEN ([facility]) Body mass index 35.3 kg/m2 35.3 kg/m2 MEDGEN (S t (BMI) [Ratio] [facility]) Diastolic blood 76 mm[Hg] 76 mm[Hg] [facility] ([facility] Systolic blood 122 mm[Hg] 122 mm[Hg] MEDGEN ([facility]) Body weight 212 lb 212 lb MEDGEN ([facility]) Body height 65 in 65 in MEDGEN ([facility]) Body mass index 36.8 kg/m2 36.8 kg/m2 MEDGEN (S t (BMI) [Ratio] [facility]) Diastolic blood 88 mm[Hg] 88 mm[Hg] [facility] ([facility] Systolic blood 120 mm[Hg] 120 mm[Hg] MEDGEN ([facility]) Body weight 221 lb 221 lb MEDGEN ([facility]) Body height 65 in 65 in MEDGEN ([facility]) Heart rate 79 /min 79 /min MEDGEN ([facility]) Respiratory rate 15 /min 15 /min MEDGEN ( [facility]) Body temperature 98 F 98 F MEDGEN ( [facility]) Inhaled oxygen 92 % 92 % MEDGEN ([facility]) Diastolic blood 81 mm[Hg] 81 mm[Hg] [facility] ([facility] Systolic blood 150 mm[Hg] 150 mm[Hg] MEDGEN ([facility]) Body weight 226 lb 226 lb MEDGEN ([facility]) Body mass index 39.1 kg/m2 39.1 kg/m2 MEDGEN (S t (BMI) [Ratio] [facility], ) Diastolic blood 72 mm[Hg] 72 mm[Hg] MEDGEN (S [facility]) Systolic blood 130 mm[Hg] 130 mm[Hg] MEDGEN ([facility]) Body weight 235 lb 235 lb MEDGEN ([facility]) Body height 65 in 65 in [facility] ([facility]) Body mass index 38.9 kg/m2 38.9 kg/m2 MEDGEN (S t (BMI) [Ratio] [facility]) Diastolic blood 70 mm[Hg] 70 mm[Hg] [facility] (S [facility]) Systolic blood 128 mm[Hg] 128 mm[Hg] MEDGEN ([facility]) Body weight 234 lb 234 lb [facility] ([facility]) Body height 65 in 65 in [facility] Body mass index 38.6 kg/m2 38.6 kg/m2 MEDGEN (S t (BMI) [Ratio] [facility]) Diastolic blood 80 mm[Hg] 80 mm[Hg] [facility] (S [facility]) Systolic blood 128 mm[Hg] 128 mm[Hg] MEDGEN ([facility]) Body weight 232 lb 232 lb MED[facility] ([facility]) Body height 65 in 65 in [facility] ([facility]) Body mass index 37.8 kg/m2 37.8 kg/m2 MEDGEN (S t (BMI) [Ratio] [facility]) Diastolic blood 82 mm[Hg] 82 mm[Hg] [facility] (S [facility]) Systolic blood 130 mm[Hg] 130 mm[Hg] MEDGEN ([facility]) Body weight 227 lb 227 lb [facility] ([facility]) Body height 65 in 65 in [facility] ([facility]) Body height 65 in 65 in [facility] ([facility]) Body mass index 38.1 kg/m2 38.1 kg/m2 MEDGEN (S t (BMI) [Ratio] [facility]) Diastolic blood 82 mm[Hg] 82 mm[Hg] [facility] (S t pressure [facility]) Systolic blood 140 mm[Hg] 140 mm[Hg] [facility] ([facility]) Body weight 229 lb 229 [facility] Body height 65 in 65 in [facility] ([facility]) Body mass index 39.6 kg/m2 39.6 kg/m2 MED[facility] (S t (BMI) [Ratio] [facility], ) Diastolic blood 76 mm[Hg] 76 mm[Hg] [facility] [place] Systolic blood 130 mm[Hg] 130 mm[Hg] [facility] ([facility]) Body weight 238 lb 238 [facility] Body height 65 in 65 in [facility] ([facility]) Body mass index 39.3 kg/m2 39.3 kg/m2 MED[facility] (S t (BMI) [Ratio] [facility]) Diastolic blood 86 mm[Hg] 86 mm[Hg] [facility] [place] [place] Systolic blood 130 mm[Hg] 130 mm[Hg] [facility] Body weight 236 lb 236 [facility] Body height 65 in 65 in [facility] ([facility])
[2020-03-13] MEDS ORDERED: predniSONE 20 MG TABLET (UD) PO ONE (14:20)
[2020-03-13] MEDS ORDERED: predniSONE 20 MG TABLET (UD) ONE (14:32)
--- NOTE | 2020-03-13 15:25 | PDOC ---
History of Present Illness - General Chief Complaint: Injury Stated Complaint: R/ARM INJURY Time Seen by Provider: 03/13/20 13:45 History Source: Patient Exam Limitations: No Limitations Past History - Travel History Traveled outside of the country in the last 30 days: No Close contact w/someone who was outside of country & ill: No - Medical History Allergies/Adverse Reactions: Allergies Allergy/AdvReac Type Severity Reaction Status Date / Time aspirin AdvReac Mild Verified 03/13/20 13:41 Home Medications: Ambulatory Orders Acetaminophen [Tylenol .Extra-Strength -] 500 mg PO Q6H #30 tablet 01/18/14 Ibuprofen 600 mg PO Q6H PRN #18 tablet 04/23/15 Calcium 500 mg PO 08/15/15 D-Methorphan/PE/Acetaminophen [Day Time Cold & Flu Softgel] 1 each PO PRN PRN 08/15/15 Dm/P-Ephed/Acetaminoph/Doxylam [Nyquil D Cold & Flu Liquid] 295 ml PO PRN PRN 08/15/15 Ferrous Sulfate [Feosol] 325 mg PO BID 08/15/15 Ibuprofen/Pseudoephedrine HCl [Advil Cold & Sinus Caplet] 1 each PO PRN PRN 08/15/15 Multivitamins [Multivit ([facility] Formulary)] 1 tab PO DAILY 08/15/15 Vitamin E 400 unit PO DAILY 08/15/15 Cephalexin Monohydrate [Keflex -] 500 mg PO BID #14 capsule 08/16/15 Oseltamivir Phosphate [Tamiflu -] 75 mg PO BID #10 capsule 08/16/15 COPD: No - Reproductive History Is Patient Now?: No - Psycho-Social/Smoking History Smoking Status: No Smoking History: Former smoker Have you smoked in the past 12 months: No Number of Cigarettes Smoked Daily: 0 Information on smoking cessation initiated: No Review of Systems - Review of Systems Able to Perform ROS?: Yes Comments:: 03/13/20 15:20 CONSTITUTIONAL: Absent: fever, chills, diaphoresis, generalized weakness, malaise, loss of appetite MUSCULOSKELETAL: Present: R 3rd finger pain Absent: myalgia, arthralgia, joint swelling SKIN: Absent: rash, itching, pallor NEUROLOGIC: Absent: headache, focal weakness or paresthesias, dizziness, unsteady gait, seizure, mental status changes, bladder or bowel incontinence PSYCHIATRIC: Absent: anxiety, depression, suicidal or homicidal ideation, hallucinations. Is the patient limited Mohawk proficient: No *Physical Exam - Vital Signs Last Vital Signs Temp Pulse Resp BP Pulse Ox 98 F 100 H 18 152/80 99 03/13/20 13:36 03/13/20 13:36 03/13/20 13:36 03/13/20 13:36 03/13/20 13:36 - Physical Exam 03/13/20 15:22 GENERAL: The patient is awake, alert, and fully oriented, in no acute distress. HEAD: Normal with no signs of trauma. EYES: Pupils equal, round and reactive to light, extraocular movements intact, sclera anicteric, conjunctiva clear. MKS: TTP of the proximal 3rd finger, unable to make a fist at this time. DIP and PIP move independently of each other NEUROLOGICAL: Normal speech, normal gait. PSYCH: Normal mood, normal affect. SKIN: Warm, Dry, normal turgor, no rashes or lesions noted. ED Treatment Course - RADIOLOGY Radiology Studies Ordered: Category Date Time Status HAND- RIGHT [RAD] Stat Radiology 03/13/20 14:20 Completed - Medications Given in the ED: ED Medications Discontinued Medications Generic Name Dose Route Start Last Admin Trade Name Freq PRN Reason Stop Dose Admin Prednisone 40 mg 03/13/20 14:20 03/13/20 14:35 Deltasone - PO 03/13/20 14:21 40 mg ONCE ONE Administration Medical Decision Making - Medical Decision Making 03/13/20 18:22 Patient is a 44-year-old female who presents to the ER with 2 days of right third finger pain. She states that her pain started after bowling 2 days ago. She tried taking Tylenol with little relief of her pain. States it hurts to make a fist. She is right-hand dominant. Denies numbness and hand weakness effect extremity. A/P: Right third finger pain On exam there is swelling to the proximal right third finger non- circumferential. There is also soreness tender palpation. X-ray shows no fractures Likely a tendinitis Patient placed in a splint and referred to [facility] [place] for further follow-up Discharge home with supportive care I discussed the physical exam findings, ancillary test results and final diagnoses with the patient. I answered all of the patient's questions. The patient was satisfied with the care received and felt comfortable with the discharge plan and treatment plan. The Patient agrees to follow up with the primary care physician/specialist within 24-72 hours. Return precautions were given. Discharge - Discharge Information Problems reviewed: Yes Clinical Impression/Diagnosis: Finger pain Qualifiers: Laterality: right Qualified Code(s): M79.644 - Pain in right finger(s) Condition: Stable Disposition: HOME - Admission No - Follow up/Referral Referrals: Manuel Albert MD [Primary Care Provider] - Rik Elizabeth MD [Staff Physician] - - Patient Discharge Instructions Patient Printed Discharge Instructions: DI for Finger Sprain Additional Instructions: You were seen for your finger swelling today. Your x-ray did not show any fractures or arthritis today. I suspect you might have tendinitis within your finger. You may take Tylenol 650 mg every 4 hours as needed for pain or swelling. Please wear the splint to give the finger a rest. Ice it for 20-minute intervals to help reduce the swelling. Please follow-up with a hand specialist for further management evaluation of your symptoms. Referrals been provided to you. Return to the ER for worsening pain, numbness tingling extremities with any changes in your symptoms. - Post Discharge Activity
== END 2020-03-13 16:44 | disposition home or self-care (01) ==
LOC: JERFT 13:32
DX: M79.644 Pain in right finger(s) (principal)
CPT/HCPCS: 73130-TC-RT-FY; 99283-25

== ENCOUNTER 2020-03-23 12:46 | Emergency (ER) | payer OTHER ==
--- NOTE | 2020-03-23 12:48 | PDOC ---
Rapid Medical Evaluation Time Seen by Provider: 03/23/20 12:47 Medical Evaluation: Allergies Allergy/AdvReac Type Severity Reaction Status Date / Time aspirin AdvReac Mild Verified 03/13/20 13:41 03/23/20 12:47 Pt presents for evaluation of swelling to the R middle finger. States it has gotten worse since last week. Exam: swelling to the base of the R 3rd finger Orders: x-ray Pt to proceed to the ER for further evaluation Discharge Disposition - Diagnosis Finger pain Qualifiers: Laterality: right Qualified Code(s): M79.644 - Pain in right finger(s) - Referrals - Patient Instructions - Post Discharge Activity
[2020-03-23 12:50] VITALS: BP 127/63; PULSE 85; TEMP 98.3; BMI 35.2
--- OUTSIDE RECORDS SUMMARY | 2020-03-23 13:47 | XMS ---
[...] is protected by Article 27-F of the [facility] Public Health law. If you continue you may haveaccess to information: Regarding HIV / AIDS; Provided by facilities licensed or operated by the [facility] Office of Mental Health; or Provided by the [facility] Office for People With Developmental Disabilities. If such information is present, then the following [facility] mandated warning applies: This information has been [...] law may result in a fine or chcf sentence or both. A general authorization for the release of medical or other information is NOT sufficient authorization for further disclosure. Allergies and Adverse Reactions Type Description Substance Reaction Status Data Source(s ) Drug allergy aspirin Aspirin Active [facility] [place], ) Encounters Encounter Providers Location Date Indications Data Source(s ) Attender: Manuel [facility]24[facility]2020 [facility], ) EDT Office Attender: Manuel 02/24/2020 12:00:00 AM EDT MED[facility] ([facility], ) Office Immunizations Vaccine Date Status Description Data Source(s) New in 2011. IIV4 03/24/2018 12:00:00 completed ME DGEN ([facility] EDT Medical, ) Medications Medication Brand Start Product Dose Route Administrative Pharmacy [facility] Indications Reaction Description Data Name Date Form Instructions Instructions Source(s) Dextrometho DEXTRO 07/15/ SYRUP 240 complet DEXTR OMETHOR MEDGEN ( rphan 3 METHOR 2019 ed SIMMS-PROMETH [facility] MG/ML / SIMMS-P 12:00: AZINE Medical , Promethazin ROMETH 00 AM PC) e AZINE: EST Hydrochlori [id number] de 1.25 MG/ML Oral Solution DEXTROMETHO RPHAN-PROME THAZINE:991 528 IPRATROPIUM 07/15/ SPRAY 1 complet IPRATRO PIUM MEDGEN (St NASAL:53335 2019 ed NASAL [facility] 44 12:00: Medical, 00 AM PC) EST Ergocalcife VITAMI 05/29/ complet VITAMI N D2 MEDGEN ( rol 30147 N 2016 ed [facility] UNT Oral D2:136 12:00: Medical , Capsule 7410 00 AM PC) VITAMIN EST D2:[id number] Insurance Providers Payer name Policy type Policy ID Covered Covered libertarian's Policy P radha / Coverage libertarian ID relationship to Peoples Inf ormation type peoples AFFINITY [id number] SP [id number] 500 MEDICAID OF [id number] [place] [id number] 1 [id number] HEALTH PLAN Problems, Conditions, and Diagnoses Code Display Name Description Problem Type Effective Data Sour ce(s) Dates J06.9 Acute upper ACUTE UPPER Problem 07/15/2019 MEDGEN ([address] respiratory RESPIRATORY 12:00:00 AM [facility] infection, INFECTION, [facility], ) unspecified UNSPECIFIED D50.8 Other iron OTHER IRON Problem 10/24/2018 MEDGEN (St deficiency anemias DEFICIENCY ANEMIAS 12:00:00 AM [facility], ) B30.8 Other viral OTHER VIRAL Problem 04/23/2018 MEDGEN (St conjunctivitis CONJUNCTIVITIS 12:00:00 AM [facility], ) Z23 Encounter for ENCOUNTER FOR Problem 03/24/2018 MEDGEN ( St immunization IMMUNIZATION 12:00:00 AM [facility], ) E55.9 Vitamin D VITAMIN D Problem 07/03/2017 MEDGEN ([address] deficiency, DEFICIENCY, 12:00:00 AM [facility] unspecified UNSPECIFIED [facility], ) D64.9 Anemia, unspecified ANEMIA, UNSPECIFIED Problem 017 MEDGEN (St 12:00:00 AM [facility], ) Z00.00 Encounter for ENCOUNTER FOR Problem 05/29/2017 MEDGEN ( St general adult GENERAL ADULT 12:00:00 AM [facility] medical examination MEDICAL EXAMINATION [facility], ) without abnormal WITHOUT ABNORMAL findings FINDINGS Surgeries/Procedures Procedure Description Date Indications Data Source(s) Documentation of current 02/24/2020 MED GEN ([facility] medications (procedure) 12:00:00 AM EDT [facility], ) OFFICE OUTPATIENT VISIT 02/24/2020 MEDG EN ([facility]'s 15 MINUTES 12:00:00 AM [facility], ) Documentation of current 11/12/2019 MED GEN ([facility]'s medications (procedure) 12:00:00 AM EDT [facility], ) Documentation of current 11/12/2019 MED GEN ([facility]'s medications (procedure) 12:00:00 AM EDT [facility], ) OFFICE OUTPATIENT VISIT 11/12/2019 MEDG EN ([facility]'s 15 MINUTES 12:00:00 AM [facility], ) COLLECTION VENOUS BLOOD 11/12/2019 MEDG EN ([facility] VENIPUNCTURE 12:00:00 AM [facility], ) Documentation of current 08/20/2019 MED GEN ([facility]'s medications (procedure) 12:00:00 AM [facility] Coco harper, ) Documentation of current 08/20/2019 MED GEN ([facility]'s medications (procedure) 12:00:00 AM [facility] Coco harper, ) OFFICE OUTPATIENT VISIT 08/20/2019 MEDG EN ([facility]'s 15 MINUTES 12:00:00 AM [facility], ) INFLUENZA VACCINE 08/20/2019 MEDGEN ([facility]'s 12:00:00 AM [facility], ) IMADM PRQ ID SUBQ/IM NJXS 08/20/2019 ME DGEN ([facility] 1 VACCINE 12:00:00 AM [facility], ) COLLECTION VENOUS BLOOD 08/20/2019 MEDG EN ([facility] VENIPUNCTURE 12:00:00 AM [facility], ) Documentation of current 07/15/2019 MED GEN ([facility]'s medications (procedure) 12:00:00 AM [facility] Coco harper, ) Documentation of current 07/15/2019 MED GEN ([facility]'s medications (procedure) 12:00:00 AM [facility] Coco harper, ) Documentation of current 07/15/2019 MED GEN ([facility] medications (procedure) 12:00:00 AM EST [facility], ) Documentation of current 07/15/2019 MED GEN ([facility] medications (procedure) 12:00:00 AM EST [facility], ) Documentation of current 07/15/2019 MED GEN ([facility] medications (procedure) 12:00:00 AM EST [facility], ) OFFICE OUTPATIENT VISIT 07/15/2019 MEDG EN ([facility] 10 MINUTES 12:00:00 AM [facility], ) Documentation of current 05/06/2019 MED GEN ([facility]'s medications (procedure) 12:00:00 AM EST [facility], ) Documentation of current 05/06/2019 MED GEN ([facility]tion[facility]'s medications (procedure) 12:00:00 AM LE[facility] harper, ) OFFICE OUTPATIENT VISIT 05/06/2019 MEDG EN ([facility] 10 MINUTES 12:00:00 AM [facility], ) Documentation of current 01/21/2019 MED GEN ([facility]'s medications (procedure) 12:00:[address] [facility], ) Documentation of current 01/21/2019 MED GEN ([facility]to[facility]ette's medications (procedure) 12:00:00 AM [facility], ) Documentation of current 01/21/2019 MED GEN ([facility]to[facility]ette's medications (procedure) 12:00:[address] [facility], ) OFFICE OUTPATIENT VISIT 01/21/2019 MEDG EN ([facility] 15 MINUTES 12:00:00 AM [facility], ) Documentation of current 10/24/2018 MED GEN ([facility]'s medications (procedure) 12:00:00 AM [facility], ) Documentation of current 10/24/2018 MED GEN ([facility] VISIT 10/24/2018 MEDG EN ([facility] 25 [facility] COLLECTION VENOUS BLOOD 10/24/2018 MEDG EN ([facility]'s VENIPUNCTURE 12:00:00 AM [facility], ) Documentation of current 05/27/2018 MED GEN ([facility]ette's medications (procedure) 12:00:[address] [facility], ) Documentation of current 05/27/2018 MED GEN ([facility]ette's medications (procedure) 12:00:[address] [facility], ) OFFICE OUTPATIENT VISIT 05/27/2018 MEDG EN ([facility] 15 MINUTES 12:00:00 AM EST Medical, ) COLLECTION VENOUS BLOOD 05/27/2018 MEDG EN ([facility] VENIPUNCTURE 12:00:00 AM [facility], ) Documentation of current 04/23/2018 MED GEN ([facility]'s medications (procedure) 12:00:00 AM EST [facility], ) OFFICE OUTPATIENT VISIT 04/23/2018 MEDG EN ([facility] 15 MINUTES 12:00:00 AM [facility], ) Documentation of current 03/24/2018 MED GEN ([facility] Documentation of current 03/24/2018 MED GEN ([facility] OFFICE OUTPATIENT VISIT 03/24/2018 MEDG EN ([facility]'s 15 MINUTES 12:00:00 AM [facility], ) INFLUENZA VACCINE 03/24/2018 MEDGEN ([facility]'s 12:00:00 AM [facility], ) IMADM PRQ ID SUBQ/IM NJXS 03/24/2018 ME DGEN ([facility] 1 VACCINE 12:00:00 AM [facility], ) Documentation of current 07/03/2017 MED GEN ([facility]'s medications (procedure) 12:00:00 AM EST [facility], ) Documentation of current 07/03/2017 MED GEN ([facility]'s medications (procedure) 12:00:[address] [facility], ) Documentation of current 07/03/2017 MED GEN ([facility]to[facility]ette's medications (procedure) 12:00:[address] [facility], ) Documentation of current 07/03/2017 MED GEN ([facility]'s medications (procedure) 12:00:[address] [facility], ) Documentation of current 07/03/2017 MED GEN ([facility]'s medications (procedure) 12:00:[address] [facility], ) Documentation of current 07/03/2017 MED GEN ([facility]'s medications (procedure) 12:00:[address] [facility], ) OFFICE OUTPATIENT VISIT 07/03/2017 MEDG EN ([facility]'s 15 MINUTES 12:00:00 AM [facility], ) Documentation of current 05/29/2017 MED GEN ([facility]'s medications (procedure) 12:00:00 AM EST [facility], ) Documentation of current 05/29/2017 MED GEN ([facility]'s medications (procedure) 12:00:00 AM EST [facility], ) Documentation of current 05/29/2017 MED GEN ([facility]'s medications (procedure) 12:00:00 AM EST [facility], ) COLLECTION VENOUS BLOOD 05/29/2017 MEDG EN ([facility]'s VENIPUNCTURE 12:00:00 AM [facility], ) Results ID Date Data Source [id number] 11/12/2019 12:00:00 AM EDT [facility] ([facility], ) Name Value Range Interpretation Description Data Sup porting Code Source(s) Document(s ) Iron 316 ug/dL Normal (applies to MEDGEN (St Bind.Cap.(TIBC non-numeric Y[facility]'s ) results) Medical, ) UIBC 293 ug/dL Normal (applies to MEDGEN (St non-numeric [facility]'s results) Medical, ) Iron 23 ug/dL Below low normal MEDGEN (St [Mass/volume] [facility] in Serum or Medical, ) Plasma Iron 7 % Below lower panic MEDGEN (St saturation limits Yohan's [Mass [facility], ) Fraction] in Serum or Plasma ID Date Data Source [id number] 11/12/2019 12:00:00 AM EDT MEDGEN ( [facility], ) Name Value Range Interpretation Description Data Sup porting Code Source(s) Document(s ) Leukocytes 6.5 Normal (applies MEDGEN (St [#/volume] in x10E3/uL to non-numeric [facility] Blood by results) Medical, ) Automated count Hemoglobin 12.0 Normal (applies MEDGEN (St [Mass/volume] in g/dL to non-numeric [facility] Blood results) Medical, ) Erythrocytes 4.29 Normal (applies MEDGEN (St [#/volume] in x10E6/uL to non-numeric [facility] Blood by results) Medical, ) Automated count Hematocrit 37.1 % Normal (applies MEDGEN (St [Volume to non-numeric Yohan's Fraction] of results) Medical, ) Blood by Automated count MCV 87 fL Normal (applies MEDGEN (St to non-numeric Y[facility]'s results) Medical, ) MCH 28.0 pg Normal (applies MEDGEN (St to non-numeric Yohan's results) Medical, ) RDW 15.0 % Normal (applies MEDGEN (St to non-numeric [facility]'s results) Medical, ) MCHC 32.3 Normal (applies MEDGEN (St g/dL to non-numeric Yohan's results) [facility], ) Platelets 495 Above high normal MEDGEN (St [#/area] in x10E3/uL [facility] Blood by Medical, ) Microscopy high power field Neutrophils [#] 66 % Normal (applies MEDGEN ( St in Body fluid by to non-numeric [facility]'s Manual count results) Medical, ) Lymphs 25 % Normal (applies MEDGEN (St to non-numeric Yohan's results) [facility]) Eos 1 % Normal (applies MEDGEN (St to non-numeric Yohan's results) [facility]) Monocytes 8 % Normal (applies MEDGEN (St [#/volume] in to non-numeric Yohan's Cord blood results) [facility]) Basos 0 % Normal (applies MEDGEN (St to non-numeric Yohan's results) [facility]) Neutrophils 4.3 Normal (applies MEDGEN (St (Absolute) x10E3/uL to non-numeric Yohan's results) [facility]) Lymphs 1.6 Normal (applies MEDGEN (St (Absolute) x10E3/uL to non-numeric Yohan's results) [facility]) Monocytes(Absolu 0.5 Normal (applies MEDGEN (St te) x10E3/uL to non-numeric Yohan's results) [facility], ) Eos (Absolute) 0.1 Normal (applies MEDGEN (S t x10E3/uL to non-numeric Yohan's results) [facility]) Immature 0 % Normal (applies MEDGEN (St Granulocytes to non-numeric Yohan's results) [facility]) Baso (Absolute) 0.0 Normal (applies MEDGEN ( St x10E3/uL to non-numeric Yohan's results) [facility]) Immature Grans 0.0 Normal (applies MEDGEN (S t (Abs) x10E3/uL to non-numeric [facility]'s results) [facility]) ID Date Data Source [id number] 08/20/2019 12:00:00 AM EST MEDGEN ([facility]) Name Value Range Interpretation Description Data Sup porting Code Source(s) Document(s ) Vitamin D, 16.6 Below low normal MEDGEN (St 25-Hydroxy ng/mL [facility]) ID Date Data Source [id number] 08/20/2019 12:00:00 AM EST MED[facility] (St [facility]) Name Value Range Interpretation Description Data Sup porting Code Source(s) Document(s ) Iron 378 ug/dL Normal (applies to MEDGEN (St Bind.Cap.(TIBC non-numeric Yohan's ) results) [facility]) UIBC 358 ug/dL Normal (applies to MEDGEN (St non-numeric Yohan's results) Medical, ) Iron 20 ug/dL Below low normal MEDGEN (St [Mass/volume] [facility] in Serum or [facility], ) Plasma Iron 5 % Below lower panic MEDGEN (St saturation limits Yohan's [Mass [facility], ) Fraction] in Serum or Plasma ID Date Data Source [id number] 08/20/2019 12:00:00 AM EST MEDGEN (St [facility], ) Name Value Range Interpretation Description Data Sup porting Code Source(s) Document(s ) Leukocytes 5.7 Normal (applies MEDGEN (St [#/volume] in x10E3/uL to non-numeric [facility] Blood by results) [facility], ) Automated count Hemoglobin 10.0 Below low normal MEDGEN (St [Mass/volume] in g/dL [facility] Blood [facility], ) Erythrocytes 3.92 Normal (applies MEDGEN (St [#/volume] in x10E6/uL to non-numeric [facility] Blood by results) [facility], ) Automated count Hematocrit 31.2 % Below low normal MEDGEN (St [Volume Yohan's Fraction] of [facility], ) Blood by Automated count MCH 25.5 pg Below low normal MEDGEN ([facility], ) MCV 80 fL Normal (applies MEDGEN (St to non-numeric Yohan's results) [facility], ) RDW 15.3 % Normal (applies MEDGEN (St to non-numeric Yohan's results) [facility], ) MCHC 32.1 Normal (applies MEDGEN (St g/dL to non-numeric Yohan's results) [facility], ) Platelets 396 Normal (applies MEDGEN (St [#/area] in x10E3/uL to non-numeric [facility]'s Blood by results) [facility], ) Microscopy high power field Lymphs 28 % Normal (applies MEDGEN (St to non-numeric Yohan's results) [facility], ) Neutrophils [#] 63 % Normal (applies MEDGEN ( St in Body fluid by to non-numeric [facility]'s Manual count results) [facility], ) Monocytes 6 % Normal (applies MEDGEN (St [#/volume] in to non-numeric [facility]'s Cord blood results) [facility], ) Eos 3 % Normal (applies MEDGEN (St to non-numeric Yohan's results) [facility], ) Basos 0 % Normal (applies MEDGEN (St to non-numeric Yohan's results) [facility], ) Neutrophils 3.6 Normal (applies MEDGEN (St (Absolute) x10E3/uL to non-numeric Yohan's results) [facility], ) Lymphs 1.6 Normal (applies MEDGEN (St (Absolute) x10E3/uL to non-numeric Yohan's results) [facility], ) Monocytes(Absolu 0.3 Normal (applies MEDGEN (St te) x10E3/uL to non-numeric Yohan's results) [facility], ) Baso (Absolute) 0.0 Normal (applies MEDGEN ( St x10E3/uL to non-numeric Yohan's results) [facility], ) Eos (Absolute) 0.2 Normal (applies MEDGEN (S t x10E3/uL to non-numeric Yohan's results) [facility], ) Immature Grans 0.0 Normal (applies MEDGEN (S t (Abs) x10E3/uL to non-numeric Yohan's results) [facility], ) Immature 0 % Normal (applies MEDGEN (St Granulocytes to non-numeric Yohan's results) [facility], ) ID Date Data Source [id number] 01/21/2019 12:00:00 AM EDT MED[facility] ([facility], ) Name Value Range Interpretation Description Data Sup porting Code Source(s) Document(s ) Leukocytes 7.7 Normal (applies MEDGEN (St [#/volume] in x10E3/uL to non-numeric [facility] Blood by results) [facility], ) Automated count Erythrocytes 4.01 Normal (applies MEDGEN (St [#/volume] in x10E6/uL to non-numeric [facility] Blood by results) [facility], ) Automated count Hemoglobin 10.5 Below low normal MEDGEN (St [Mass/volume] in g/dL [facility] Blood [facility], ) Hematocrit 33.2 % Below low normal MEDGEN (St [Volume Yohan's Fraction] of [facility], ) Blood by Automated count MCV 83 fL Normal (applies MEDGEN (St to non-numeric Yohan's results) [facility], ) MCH 26.2 pg Below low normal MEDGEN ([facility], ) MCHC 31.6 Normal (applies MEDGEN (St g/dL to non-numeric Y[facility]'s results) Medical, ) RDW 14.7 % Normal (applies MEDGEN (St to non-numeric Yohan's results) [facility], ) Neutrophils [#] 64 % Normal (applies MEDGEN ( St in Body fluid by to non-numeric [facility]'s Manual count results) [facility], ) Platelets 409 Normal (applies MEDGEN (St [#/area] in x10E3/uL to non-numeric [facility] Blood by results) [facility], ) Microscopy high power field Lymphs 26 % Normal (applies MEDGEN (St to non-numeric Yohan's results) [facility], ) Eos 1 % Normal (applies MEDGEN (St to non-numeric Yohan's results) [facility], ) Monocytes 9 % Normal (applies MEDGEN (St [#/volume] in to non-numeric Yohan's Cord blood results) [facility], ) Basos 0 % Normal (applies MEDGEN (St to non-numeric Yohan's results) [facility], ) Neutrophils 4.9 Normal (applies MEDGEN (St (Absolute) x10E3/uL to non-numeric Yohan's results) [facility], ) Lymphs 2.0 Normal (applies MEDGEN (St (Absolute) x10E3/uL to non-numeric Yohan's results) [facility], ) Monocytes(Absolu 0.7 Normal (applies MEDGEN (St te) x10E3/uL to non-numeric Yohan's results) [facility], ) Eos (Absolute) 0.1 Normal (applies MEDGEN (S t x10E3/uL to non-numeric Yohan's results) [facility], ) Immature 0 % Normal (applies MEDGEN (St Granulocytes to non-numeric Yohan's results) [facility], ) Baso (Absolute) 0.0 Normal (applies MEDGEN ( St x10E3/uL to non-numeric Yohan's results) [facility], ) Immature Grans 0.0 Normal (applies MEDGEN (S t (Abs) x10E3/uL to non-numeric Yohan's results) [facility], ) ID Date Data Source [id number] 10/24/2018 12:00:00 AM EDT [facility] ([facility], ) Name Value Range Interpretation Description Data Sup porting Code Source(s) Document(s ) Vitamin D, 14.8 Below low normal MEDGEN (St 25-Hydroxy ng/mL [facility]) ID Date Data Source [id number] 10/24/2018 12:00:00 AM EDT [facility] ([facility], ) Name Value Range Interpretation Code Description Data Viola rce(s) Supporting Document(s ) TSH 0.844 Normal (applies to MEDGEN (St uIU/mL non-numeric results) [facility] Me [facility]mi, ) ID Date Data Source [id number] 10/24/2018 12:00:00 AM EDT [facility] ([facility], ) Name Value Range Interpretation Description Data Sup porting Code Source(s) Document(s ) Vitamin B12 263 pg/mL Normal (applies to MEDGEN (S t non-numeric Yohan's results) Medical, PC) Folate 9.8 ng/mL Normal (applies to MEDGEN (St (Folic non-numeric Yohan's Acid), Serum results) [facility], ) ID Date Data Source [id number] 10/24/2018 12:00:00 AM EDT [facility] ([facility], ) Name Value Range Interpretation Description Data Sup porting Code Source(s) Document(s ) Iron 351 ug/dL Normal (applies to MEDGEN (St Bind.Cap.(TIBC non-numeric Yohan's ) results) Medical, ) UIBC 317 ug/dL Normal (applies to MEDGEN (St non-numeric Yohan's results) [facility], PC) Iron 34 ug/dL Normal (applies to MEDGEN (St [Mass/volume] non-numeric [facility]'s in Serum or results) Medical, PC) Plasma Iron 10 % Below low normal MEDGEN (St saturation [facility] [Mass [facility], ) Fraction] in Serum or Plasma ID Date Data Source [id number] 10/24/2018 12:00:00 AM EDT [facility] ([facility], ) Name Value Range Interpretation Description Data Sup porting Code Source(s) Document(s ) Glucose 86 mg/dL Normal (applies MEDGEN (St [Mass/volume] in to non-numeric [facility]'s Urine collected for results) [facility], unspecified ) duration Urea nitrogen 18 mg/dL [...] [facility] Serum or Plasma results) Medical, PC) Globulin, Total 3.1 g/dL Normal (applies MEDGEN [...] Serum or Plasma ID Date Data Source [id number] 10/24/2018 12:00:00 AM EDT [facility] ([facility], ) Name Value Range Interpretation Description Data Sup porting Code Source(s) Document(s ) Erythrocytes 3.77 Normal (applies MEDGEN (St [#/volume] in x10E6/uL to non-numeric [facility] Blood by results) Medical, ) Automated count Leukocytes 6.9 Normal (applies MEDGEN (St [#/volume] in x10E3/uL to non-numeric Y[facility]'s Blood by results) [facility], ) Automated count Hemoglobin 11.0 Below low normal MEDGEN (St [Mass/volume] in g/dL [facility]ohan's Blood [facility], ) Hematocrit 33.8 % Below low normal MEDGEN (St [Volume Yohan's Fraction] of [facility], ) Blood by Automated count MCV 90 fL Normal (applies MEDGEN (St to non-numeric [facility]'s results) Medical, ) MCHC 32.5 Normal (applies MEDGEN (St g/dL to non-numeric Yohan's results) [facility], ) MCH 29.2 pg Normal (applies MEDGEN (St to non-numeric Yohan's results) [facility], ) Platelets 471 Above high normal MEDGEN (St [#/area] in x10E3/uL Yohan's Blood by [facility], ) Microscopy high power field RDW 14.8 % Normal (applies MEDGEN (St to non-numeric Yohan's results) Medical, ) Neutrophils [#] 65 % Normal (applies MEDGEN ( St in Body fluid by to non-numeric [facility]'s Manual count results) [facility], ) Monocytes 5 % Normal (applies MEDGEN (St [#/volume] in to non-numeric Yohan's Cord blood results) [facility], ) Lymphs 29 % Normal (applies MEDGEN (St to non-numeric Yohan's results) [facility], ) Eos 1 % Normal (applies MEDGEN (St to non-numeric Yohan's results) Medical, ) Basos 0 % Normal (applies MEDGEN (St to non-numeric Yohan's results) [facility]) Neutrophils 4.5 Normal (applies MEDGEN (St (Absolute) x10E3/uL to non-numeric Yohan's results) [facility]) Lymphs 2.0 Normal (applies MEDGEN (St (Absolute) x10E3/uL to non-numeric Yohan's results) [facility]) Monocytes(Absolu 0.3 Normal (applies MEDGEN (St te) x10E3/uL to non-numeric Yohan's results) [facility]) Eos (Absolute) 0.1 Normal (applies MEDGEN (S t x10E3/uL to non-numeric Yohan's results) [facility]) Baso (Absolute) 0.0 Normal (applies MEDGEN ( St x10E3/uL to non-numeric Yohan's results) [facility]) Immature 0 % Normal (applies MEDGEN (St Granulocytes to non-numeric Yohan's results) [facility]) Immature Grans 0.0 Normal (applies MEDGEN (S t (Abs) x10E3/uL to non-numeric Yohan's results) [facility]) ID Date Data Source [id number] 06/06/2018 12:00:00 AM EST MEDGEN ([facility], ) Name Value Range Interpretation Description Data Sup porting Code Source(s) Document(s ) Leukocytes 9.5 Normal (applies MEDGEN (St [#/volume] in x10E3/uL to non-numeric [facility] Blood by results) [facility], ) Automated count Erythrocytes 3.96 Normal (applies MEDGEN (St [#/volume] in x10E6/uL to non-numeric [facility] Blood by results) [facility]) Automated count Hemoglobin 9.8 g/dL Below low normal MEDGEN (St [Mass/volume] in [facility] Blood [facility]) Hematocrit 31.2 % Below low normal MEDGEN (St [Volume [facility] Fraction] of [facility]) Blood by Automated count MCV 79 fL Normal (applies MEDGEN (St to non-numeric [facility]'s results) [facility]) MCH 24.7 pg Below low normal MEDGEN ([facility], ) MCHC 31.4 Below low normal MEDGEN (St g/dL [facility], ) RDW 15.7 % Above high normal MEDGEN ([facility], ) Platelets 500 Above high normal MEDGEN (St [#/area] in x10E3/uL [facility] Blood by [facility], ) Microscopy high power field Lymphs 20 % Normal (applies MEDGEN (St to non-numeric [facility]'s results) [facility], ) Neutrophils [#] 71 % Normal (applies MEDGEN ( St in Body fluid by to non-numeric [facility] Manual count results) [facility], ) Monocytes 7 % Normal (applies MEDGEN (St [#/volume] in to non-numeric [facility] Cord blood results) [facility], ) Eos 2 % Normal (applies MEDGEN (St to non-numeric [facility]'s results) [facility], ) Basos 0 % Normal (applies MEDGEN (St to non-numeric Yohan's results) [facility], ) Neutrophils 6.6 Normal (applies MEDGEN (St (Absolute) x10E3/uL to non-numeric [facility]'s results) [facility], ) Lymphs 1.9 Normal (applies MEDGEN (St (Absolute) x10E3/uL to non-numeric [facility]'s results) [facility], ) Monocytes(Absolu 0.7 Normal (applies MEDGEN (St te) x10E3/uL to non-numeric [facility]'s results) [facility], ) Baso (Absolute) 0.0 Normal (applies MEDGEN ( St x10E3/uL to non-numeric [facility]'s results) [facility], ) Eos (Absolute) 0.2 Normal (applies MEDGEN (S t x10E3/uL to non-numeric [facility]'s results) [facility], ) Immature Grans 0.0 Normal (applies MEDGEN (S t (Abs) x10E3/uL to non-numeric [facility]'s results) [facility], ) Immature 0 % Normal (applies MEDGEN (St Granulocytes to non-numeric [facility]'s results) [facility], ) ID Date Data Source [id number] 05/27/2018 12:00:00 AM EST MEDGEN ([facility], ) Name Value Range Interpretation Description Data Sup porting Code Source(s) Document(s ) Vitamin D, 16.6 Below low normal MEDGEN (St 25-Hydroxy ng/mL [facility]) ID Date Data Source [id number] 05/27/2018 12:00:00 AM EST MEDGEN ([facility] Name Value Range Interpretation Description Data Sup porting Code Source(s) Document(s ) Cholesterol 184 Normal (applies MEDGEN (St [Mass/volume] in mg/dL to non-numeric [facility] Serum or Plasma results) [facility]) Triglyceride 207 Above high normal MEDGEN (S t [Mass/volume] in mg/dL [facility] Serum or Plasma [facility]) HDL Cholesterol 35 mg/dL Below low normal MEDGEN ([facility]) VLDL Cholesterol 41 mg/dL Above high normal MEDGE N ([facility]) LDL Cholesterol 108 Above high normal MEDGEN (St Calc mg/dL [facility]) ID Date Data Source [id number] 05/27/2018 12:00:00 AM EST [facility] [place] [place] Name Value Range Interpretation Description Data Sup porting Code Source(s) Document(s ) Glucose 93 mg/dL Normal (applies MEDGEN (St [Mass/volume] in to non-numeric [facility] Urine collected for results) Medical, unspecified [facility]) duration Urea nitrogen 12 mg/dL Normal (applies MEDGEN (St [Mass/volume] in to non-numeric [facility] Serum or Plasma results) [facility]) Creatinine 0.55 Below low normal MEDGEN (St [Interpretation] in mg/dL [facility], ) eGFR If Africn Am 132 Normal [...] or Plasma results) [facility], [facility]) Carbon dioxide, 21 Normal (applies MEDGEN ( St total mmol/L to non-numeric [facility]'s [Moles/volume] in results) Medical, Serum or Plasma PC) Calcium 9.1 Normal (applies MEDGEN (St [Moles/volume] in mg/dL to non-numeric [facility] Urine collected for results) Medical, unspecified [facility]) duration Protein 7.1 g/dL Normal (applies MEDGEN (St [Mass/volume] in to non-numeric [facility] Serum or Plasma results) [facility]) Microalbumin 4.2 g/dL Normal (applies MEDGEN (St [Mass/time] in to non-numeric [facility] Urine collected for results) Medical, unspecified PC) duration Globulin, Total 2.9 g/dL Normal (applies MEDGEN ( St to non-numeric [facility] results) [facility]) A/G Ratio 1.4 Normal (applies MEDGEN (St to non-numeric [facility] results) [facility]) Bilirubin.total 0.2 Normal (applies MEDGEN ( St [Mass/volume] in mg/dL to non-numeric [facility] Serum or Plasma results) [facility]) Aspartate 26 IU/L Normal (applies MEDGEN (St [...] Serum or Plasma ID Date Data Source [id number] 05/27/2018 12:00:00 AM EST MEDGEN ([facility] Name Value Range Interpretation Description Data Sup porting Code Source(s) Document(s ) Leukocytes 6.9 Normal (applies MEDGEN (St [#/volume] in x10E3/uL to non-numeric [facility] Blood by results) [facility]) Automated count Erythrocytes 3.80 Normal (applies MEDGEN (St [#/volume] in x10E6/uL to non-numeric [facility] Blood by results) [facility]) Automated count Hematocrit 30.8 % Below low normal MEDGEN (St [Volume [facility] Fraction] of [facility]) Blood by Automated count Hemoglobin 9.7 g/dL Below low normal MEDGEN (St [Mass/volume] in [facility] Blood [facility]) MCV 81 fL Normal (applies MEDGEN (St to non-numeric Y[facility]'s results) [facility]) MCH 25.5 pg Below low normal MEDGEN ([facility]) MCHC 31.5 Normal (applies MEDGEN (St g/dL to non-numeric Y[facility]'s results) [facility]) RDW 15.9 % Above high normal MEDGEN ([facility]) Platelets 435 Above high normal MEDGEN (St [#/area] in x10E3/uL [facility] Blood by [facility]) Microscopy high power field Lymphs 21 % Normal (applies MEDGEN (St to non-numeric [facility]'s results) [facility]) Neutrophils [#] 70 % Normal (applies MEDGEN ( St in Body fluid by to non-numeric [facility] Manual count results) [facility]) Monocytes 7 % Normal (applies MEDGEN (St [#/volume] in to non-numeric [facility] Cord blood results) [facility]) Eos 2 % Normal (applies MEDGEN (St to non-numeric Y[facility]'s results) [facility]) Basos 0 % Normal (applies MEDGEN (St to non-numeric Yohan's results) [facility]) Lymphs 1.5 Normal (applies MEDGEN (St (Absolute) x10E3/uL to non-numeric [facility]'s results) [facility]) Neutrophils 4.8 Normal (applies MEDGEN (St (Absolute) x10E3/uL to non-numeric Y[facility]'s results) [facility]) Monocytes(Absolu 0.5 Normal (applies MEDGEN (St te) x10E3/uL to non-numeric Y[facility]'s results) [facility]) Eos (Absolute) 0.2 Normal (applies MEDGEN (S t x10E3/uL to non-numeric Yohan's results) [facility]) Baso (Absolute) 0.0 Normal (applies MEDGEN ( St x10E3/uL to non-numeric [facility]'s results) [facility]) Immature Grans 0.0 Normal (applies MEDGEN (S t (Abs) x10E3/uL to non-numeric [facility]'s results) [facility]) Immature 0 % Normal (applies MEDGEN (St Granulocytes to non-numeric [facility] results) Medical, ) ID Date Data Source [id number] 05/29/2017 12:00:00 AM EST MEDGEN ([facility], ) Name Value Range Interpretation Description Data Sup porting Code Source(s) Document(s ) HIV Screen Non Normal (applies MEDGEN (St 4th Reactive to non-numeric [facility] Generation results) Medical, ) wRfx ID Date Data Source [id number] 05/29/2017 12:00:00 AM EST MEDGEN ([facility], ) Name Value Range Interpretation Description Data Sup porting Code Source(s) Document(s ) Vitamin D, 24.9 Below low normal MEDGEN (St 25-Hydroxy ng/mL [facility], ) ID Date Data Source [id number] 05/29/2017 12:00:00 AM EST MEDGEN ([facility], ) Name Value Range Interpretation Description Data Sup porting Code Source(s) Document(s ) Hemoglobin 4.9 % Normal (applies to MEDGEN (St A1c/Hemoglobin. non-numeric [facility]'s total in Blood results) Medical, ) ID Date Data Source [id number] 05/29/2017 12:00:00 AM EST MEDGEN ([facility], ) Name Value Range Interpretation Description Data Sup porting Code Source(s) Document(s ) Folate >20.0 Normal (applies to MEDGEN (St (Folic non-numeric [facility] Acid), Serum results) Medical, ) Vitamin B12 375 pg/mL Normal (applies to MEDGEN (S t non-numeric [facility] results) Medical, ) ID Date Data Source [id number] 05/29/2017 12:00:00 AM EST MEDGEN ([facility], ) Name Value Range Interpretation Description Data Sup porting Code Source(s) Document(s ) Bilirubin.c 0.06 mg/dL Normal (applies to MEDGEN ( St onjugated non-numeric [facility]'s [Mass/volum results) Medical, ) e] in Serum or Plasma ID Date Data Source [id number] 05/29/2017 12:00:00 AM EST MEDGEN ([facility], ) Name Value Range Interpretation Description Data Sup porting Code Source(s) Document(s ) Cholesterol 197 Normal (applies MEDGEN (St [Mass/volume] in mg/dL to non-numeric [facility] Serum or Plasma results) Medical, ) Triglyceride 182 Above high normal MEDGEN (S t [Mass/volume] in mg/dL [facility] Serum or Plasma Medical, ) HDL Cholesterol 37 mg/dL Below low normal MEDGEN ([facility], ) VLDL Cholesterol 36 mg/dL Normal (applies MEDGEN (St [place] to non-numeric [facility]'s results) Medical, ) LDL Cholesterol 124 Above high normal MEDGEN (St Calc mg/dL [facility], ) ID Date Data Source [id number] 05/29/2017 12:00:00 AM EST MEDGEN ([facility], ) Name Value Range Interpretation Description Data Sup porting Code Source(s) Document(s ) Specific gravity 1.029 Normal (applies MEDGEN (St of Pericardial to non-numeric [facility]'s fluid by results) [facility], [facility]) pH of Lower 5.5 Normal (applies MEDGEN (St respiratory to non-numeric [facility]'s specimen results) Medical, ) Urine-Color Yellow Normal (applies MEDGEN (St to non-numeric [facility]'s results) Medical, ) Appearance of Cloudy Abnormal (applies MEDGEN ( St Abdomen to non-numeric [facility]'s results) Medical, ) WBC Esterase Negative Normal (applies MEDGEN (St to non-numeric [facility]'s results) Medical, ) Glucose Negative Normal (applies MEDGEN (St [Mass/volume] [...] to non-numeric [facility]'s Peritoneal fluid results) Medical, ) Occult Blood Negative Normal (applies MEDGEN (St to non-numeric [facility]'s results) Medical, ) Urobilinogen,Bautista 0.2 EU/dL Normal (applies MEDGEN (St i-Qn to non-numeric [facility]'s results) Medical, ) Nitrite, Urine Negative Normal (applies MEDGEN (S t to non-numeric Y[facility]'s results) Medical, ) Microscopic Normal (applies MEDGEN (St Examination to non-numeric [facility]'s results) Medical, ) ID Date Data Source [id number] 05/29/2017 12:00:00 AM EST MEDGEN ([facility] [...] (St mmol/L to non-numeric [facility]'s results) Medical, ) Chloride 101 Normal (applies MEDGEN (St [Moles/volume] [...] MEDGEN ( St to non-numeric Yohan's results) [facility], ) A/G Ratio 1.5 Normal (applies MEDGEN (St to non-numeric Yohan's results) [facility], ) Bilirubin.total <0.2 Normal (applies MEDGEN ( St [Mass/volume] in to non-numeric Y[facility]'s Serum or Plasma results) [facility], ) Aspartate 19 IU/L Normal (applies MEDGEN (St aminotransferase to non-numeric [facility]'s [Enzymatic results) Medical, activity/volume] in ) Serum or Plasma Alkaline 75 IU/L Normal (applies MEDGEN (St Phosphatase, S to non-numeric Yohan's results) [facility], ) Alanine 5 IU/L Normal (applies MEDGEN (St aminotransferase to non-numeric Yohan's [Enzymatic results) Medical, activity/volume] in ) Serum or Plasma ID Date Data Source [id number] 05/29/2017 12:00:00 AM EST MEDGEN ([facility], ) Name Value Range Interpretation Description Data Sup porting Code Source(s) Document(s ) Leukocytes 6.5 Normal (applies MEDGEN (St [#/volume] in x10E3/uL to non-numeric [facility] Blood by results) [facility], ) Automated count Erythrocytes 4.38 Normal (applies MEDGEN (St [#/volume] in x10E6/uL to non-numeric [facility] Blood by results) [facility], ) Automated count Hematocrit 37.2 % Normal (applies MEDGEN (St [Volume to non-numeric Yohan's Fraction] of results) [facility], ) Blood by Automated count Hemoglobin 12.0 Normal (applies MEDGEN (St [Mass/volume] in g/dL to non-numeric Y[facility]'s Blood results) [facility], ) MCH 27.4 pg Normal (applies MEDGEN (St to non-numeric Yohan's results) [facility], ) MCV 85 fL Normal (applies MEDGEN (St to non-numeric Yohan's results) [facility], ) MCHC 32.3 Normal (applies MEDGEN (St g/dL to non-numeric Yohan's results) [facility], ) RDW 15.2 % Normal (applies MEDGEN (St to non-numeric Yohan's results) [facility], ) Platelets 510 Above high normal MEDGEN [...] EDT years ago drinks years ago radha lozada [facility], occasionally occasionally ) Smoking 02/24/2020 Unknown if ever completed Unknown if ever MEDG EN (St 12:00:00 AM EDT smoked smoked [facility], ) Vital Signs ID Date Data Source UNK Name Value Range Interpretation Code Description Data Source(s) Body mass index 35.1 kg/m2 35.1 kg/m2 MEDGEN (S t (BMI) [Ratio] [facility]) Diastolic blood 82 mm[Hg] 82 mm[Hg] MEDGEN (S t pressure [facility]) Systolic blood 118 mm[Hg] 118 mm[Hg] MEDGEN ([facility]) Body weight 211 lb 211 lb MEDGEN ([facility] [place]) Body height 65 in 65 in MEDGEN ([facility]) Heart rate 78 /min 78 /min MEDGEN ([facility]) Body temperature 98 F 98 F MEDGEN ( [facility]) Inhaled oxygen 99 % 99 % MEDGEN ([facility]) Body mass index 35.3 kg/m2 35.3 kg/m2 MEDGEN (S t (BMI) [Ratio] [facility], ) Diastolic blood 76 mm[Hg] 76 mm[Hg] MEDGEN (S t [facility]) Systolic blood 122 mm[Hg] 122 mm[Hg] MEDGEN ([facility]) Body weight 212 lb 212 lb MEDGEN ([facility]) Body height 65 in 65 in MEDGEN ([facility]) Body mass index 36.8 kg/m2 36.8 kg/m2 MEDGEN (S t (BMI) [Ratio] [facility], ) Diastolic blood 88 mm[Hg] 88 mm[Hg] MEDGEN (S t pressure [facility]) Systolic blood 120 mm[Hg] 120 mm[Hg] MEDGEN ([facility]) Body weight 221 lb 221 lb MEDGEN ([facility]) Body height 65 in 65 in MEDGEN ([facility]) Heart rate 79 /min 79 /min MEDGEN ([facility]) Respiratory rate 15 /min 15 /min MEDGEN ( [facility]) Body temperature 98 F 98 F MEDGEN ( [facility]) Inhaled oxygen 92 % 92 % MEDGEN ([facility]) Diastolic blood 81 mm[Hg] 81 mm[Hg] MEDGEN (S t pressure [facility]) Systolic blood 150 mm[Hg] 150 mm[Hg] MEDGEN ([facility]) Body weight 226 lb 226 lb MEDGEN ([facility]) Body mass index 39.1 kg/m2 39.1 kg/m2 MEDGEN (S t (BMI) [Ratio] [facility]) Diastolic blood 72 mm[Hg] 72 mm[Hg] MEDGEN (S [facility]) Systolic blood 130 mm[Hg] 130 mm[Hg] MEDGEN ([facility]) Body weight 235 lb 235 lb MEDGEN ([facility]) Body height 65 in 65 in [facility] ([facility]) Body mass index 38.9 kg/m2 38.9 kg/m2 MEDGEN (S t (BMI) [Ratio] [facility]) Diastolic blood 70 mm[Hg] 70 mm[Hg] MEDGEN (S [facility]) Systolic blood 128 mm[Hg] 128 mm[Hg] MEDGEN ([facility]) Body weight 234 lb 234 lb MEDGEN ([facility]) Body height 65 in 65 in [facility] ([facility]) Body mass index 38.6 kg/m2 38.6 kg/m2 MEDGEN (S t (BMI) [Ratio] [facility]) Diastolic blood 80 mm[Hg] 80 mm[Hg] MEDGEN (S [facility]) Systolic blood 128 mm[Hg] 128 mm[Hg] MEDGEN ([facility] [place]) Body weight 232 lb 232 lb MEDGEN ([facility]) Body height 65 in 65 in MEDGEN ([facility]) Body mass index 37.8 kg/m2 37.8 kg/m2 MEDGEN (S t (BMI) [Ratio] [facility]) Diastolic blood 82 mm[Hg] 82 mm[Hg] MEDGEN (S [facility]) Systolic blood 130 mm[Hg] 130 mm[Hg] MEDGEN ([facility]) Body weight 227 lb 227 lb MEDGEN ([facility]) Body height 65 in 65 in MEDGEN ([facility]) Body height 65 in 65 in [facility] ([facility]) Body mass index 38.1 kg/m2 38.1 kg/m2 MEDGEN (S t (BMI) [Ratio] [facility]) Diastolic blood 82 mm[Hg] 82 mm[Hg] MEDGEN (S t pressure [facility]) Systolic blood 140 mm[Hg] 140 mm[Hg] MEDGEN ([facility]) Body weight 229 lb 229 lb [facility] ([facility]) Body height 65 in 65 in [facility] ([facility]) Body mass index 39.6 kg/m2 39.6 kg/m2 [facility] (S t (BMI) [Ratio] [facility]) Diastolic blood 76 mm[Hg] 76 mm[Hg] [facility] (S t pressure [facility]) Systolic blood 130 mm[Hg] 130 mm[Hg] [facility] ([facility] [place]) Body weight 238 lb 238 lb [facility] ([facility] [place]) Body height 65 in 65 in [facility] ([facility]) Body mass index 39.3 kg/m2 39.3 kg/m2 MEDGEN (S t (BMI) [Ratio] [facility]) Diastolic blood 86 mm[Hg] 86 mm[Hg] [facility] (S t [facility]) Systolic blood 130 mm[Hg] 130 mm[Hg] [facility] ([facility]) Body weight 236 lb 236 lb [facility] ([facility]) Body height 65 in 65 in [facility] ([facility])
--- NOTE | 2020-03-23 14:02 | PDOC ---
History of Present Illness - General Chief Complaint: Pain Stated Complaint: RT HAND INJUR (FINGER) Time Seen by Provider: 03/23/20 12:47 - History of Present Illness Initial Comments: 03/23/20 14:10 Patient is belligerent and refuses to be seen she entered fast track yelling. I have deferred treatment to other providers at this time. Past History - Medical History Allergies/Adverse Reactions: Allergies Allergy/AdvReac Type Severity Reaction Status Date / Time aspirin AdvReac Mild Verified 03/23/20 12:50 Home Medications: Ambulatory Orders Acetaminophen [Tylenol .Extra-Strength -] 500 mg PO Q6H #30 tablet 01/18/14 Ibuprofen 600 mg PO Q6H PRN #18 tablet 04/23/15 Calcium 500 mg PO 08/15/15 D-Methorphan/PE/Acetaminophen [Day Time Cold & Flu Softgel] 1 each PO PRN PRN 08/15/15 Dm/P-Ephed/Acetaminoph/Doxylam [Nyquil D Cold & Flu Liquid] 295 ml PO PRN PRN 08/15/15 Ferrous Sulfate [Feosol] 325 mg PO BID 08/15/15 Ibuprofen/Pseudoephedrine HCl [Advil Cold & Sinus Caplet] 1 each PO PRN PRN 08/15/15 Multivitamins [Multivit ([facility] Formulary)] 1 tab PO DAILY 08/15/15 Vitamin E 400 unit PO DAILY 08/15/15 Cephalexin Monohydrate [Keflex -] 500 mg PO BID #14 capsule 08/16/15 Oseltamivir Phosphate [Tamiflu -] 75 mg PO BID #10 capsule 08/16/15 COPD: No - Reproductive History Is Patient Now?: No - Psycho-Social/Smoking History Smoking Status: No Smoking History: Never smoked Have you smoked in the past 12 months: No Number of Cigarettes Smoked Daily: 0 Information on smoking cessation initiated: Yes - Substance Abuse Hx (Audit-C & DAST Scrn) How often the patient has a drink containing alcohol: Never Score: In Men: 4 or > Positive; In Women: 3 or > Positive: 0 Screen Result (Pos requires Nsg. Audit-10AR): Negative In the last yr the pt used illegal drug/Rx for NonMed reason: No Score: Yes response is considered Positive: 0 Screen Result (Positive result requires Nsg. DAST-10): Negative Review of Systems - Review of Systems Able to Perform ROS?: No *Physical Exam - Vital Signs Last Vital Signs Temp Pulse Resp BP Pulse Ox 98.3 F 85 19 127/63 99 03/23/20 12:48 03/23/20 12:48 03/23/20 12:48 03/23/20 12:48 03/23/20 12:48 - Physical Exam 03/23/20 14:11 Physical examination not done Medical Decision Making - Medical Decision Making 03/23/20 14:01 Patient called back and saw the emergency room for evaluation she is on the phone at this point I will give her some more time 03/23/20 14:11 Treatment deferred to other providers. There is no emergent condition at this time finger pain for a week. Patient is belligerent at this point it is in her best interest to see another provider at this time. Discharge - Discharge Information Problems reviewed: No Clinical Impression/Diagnosis: Finger pain Qualifiers: Laterality: right Qualified Code(s): M79.644 - Pain in right finger(s) - Admission No - Follow up/Referral Referrals: Manuel Albert MD [Primary Care Provider] - - Patient Discharge Instructions - Post Discharge Activity
--- NOTE | 2020-03-23 14:46 | PDOC ---
History of Present Illness - General Chief Complaint: Pain Stated Complaint: RT HAND INJUR (FINGER) Time Seen by Provider: 03/23/20 12:47 History Source: Patient Exam Limitations: No Limitations - History of Present Illness Initial Comments: 03/23/20 14:42 45-year-old female [id number] complaining of right third digit pain after bowling. Patient was seen and examined about 1 week ago and had a negative x-ray. Patient returns today for continued pain and swelling of the right third digit. Patient has a follow-up appointment with a hand surgeon on Saturday. Patient denies numbness tingling in the affected digit but does endorse mild decreased range of motion at the PIP joint. Pt otherwise denies: fevers, chills, syncope, lightheadedness, dizziness, headaches, neck pain, chest pain, shortness of breath, palpitations, back pain, abdominal pain, nausea, vomiting, diarrhea, constipation. Past History - Medical History Allergies/Adverse Reactions: Allergies Allergy/AdvReac Type Severity Reaction Status Date / Time aspirin AdvReac Mild Verified 03/23/20 12:50 Home Medications: Ambulatory Orders Acetaminophen [Tylenol .Extra-Strength -] 500 mg PO Q6H #30 tablet 01/18/14 Ibuprofen 600 mg PO Q6H PRN #18 tablet 04/23/15 Calcium 500 mg PO 08/15/15 D-Methorphan/PE/Acetaminophen [Day Time Cold & Flu Softgel] 1 each PO PRN PRN 08/15/15 Dm/P-Ephed/Acetaminoph/Doxylam [Nyquil D Cold & Flu Liquid] 295 ml PO PRN PRN 08/15/15 Ferrous Sulfate [Feosol] 325 mg PO BID 08/15/15 Ibuprofen/Pseudoephedrine HCl [Advil Cold & Sinus Caplet] 1 each PO PRN PRN 08/15/15 Multivitamins [Multivit ([facility] Formulary)] 1 tab PO DAILY 08/15/15 Vitamin E 400 unit PO DAILY 08/15/15 Cephalexin Monohydrate [Keflex -] 500 mg PO BID #14 capsule 08/16/15 Oseltamivir Phosphate [Tamiflu -] 75 mg PO BID #10 capsule 08/16/15 COPD: No - Reproductive History Is Patient Now?: No - Psycho-Social/Smoking History Smoking Status: No Smoking History: Never smoked Have you smoked in the past 12 months: No Number of Cigarettes Smoked Daily: 0 Information on smoking cessation initiated: Yes - Substance Abuse Hx (Audit-C & DAST Scrn) How often the patient has a drink containing alcohol: Never Score: In Men: 4 or > Positive; In Women: 3 or > Positive: 0 Screen Result (Pos requires Nsg. Audit-10AR): Negative In the last yr the pt used illegal drug/Rx for NonMed reason: No Score: Yes response is considered Positive: 0 Screen Result (Positive result requires Nsg. DAST-10): Negative *Physical Exam - Vital Signs Last Vital Signs Temp Pulse Resp BP Pulse Ox 98.3 F 85 19 127/63 99 03/23/20 12:48 03/23/20 12:48 03/23/20 12:48 03/23/20 12:48 03/23/20 12:48 - Physical Exam 03/23/20 14:43 Gen: AAOx 3, no acute distress, comfortable, no signs of respiratory distress CV: RRR no murmurs, gallops, or rubs. CHEST: CTA b/l no wheezing, rales or rhonchi ABD: +BS/ND. no TTP; soft, no rebound, no guarding EXTREMITY: no cyanosis or erythema. 2+ dorsalis pedis, posterior tibial, and radial pulse. No pedal edema; no calf swelling or tenderness Right hand: There is swelling and tenderness palpation to the third digit over the PIP joint patient is able to bend the finger to 90 degrees but cannot make a closed fist there is no signs of trigger finger mallet finger or tendon injury sensations intact there is 2+ cap refill. NEURO: normal speech, CN II-XII intact, sensation intact, normal gait, no cerebellar deficits MS: 5/5 strength in all extremities, FROM intact in all extremities. Medical Decision Making - Medical Decision Making 03/23/20 14:44 45-year-old female with right third digit pain Vital signs stable Will obtain x-ray right hand X-ray negative for any acute fracture or dislocation Patient placed in finger splint and told to follow-up with hand surgery without fail Rice instructions given Pt appears well and is safe and stable for discharge with strict return precautions including signs and symptoms requring immediate return to the ED Supportive care instructions explained and given to pt. Reasons to return emergently to ER explained and given. Importance of follow up with PMD and other specialists as indicated stressed to pt. Pt verbalized understanding of instructions. Pt to follow up with PMD in 2 days. Discharge - Discharge Information Problems reviewed: Yes Clinical Impression/Diagnosis: Finger pain Qualifiers: Laterality: right Qualified Code(s): M79.644 - Pain in right finger(s) Condition: Stable Disposition: HOME - Follow up/Referral Referrals: Manuel Albert MD [Primary Care Provider] - - Patient Discharge Instructions Patient Printed Discharge Instructions: Finger Sprain Additional Instructions: PLEASE FOLLOW UP WITH HAND SURGEON - Post Discharge Activity
== END 2020-03-23 14:59 | disposition home or self-care (01) ==
LOC: JERFT 12:46 → JER 12:46
DX: M79.644 Pain in right finger(s) (principal)
CPT/HCPCS: 73130-TC-RT-FY; 99283-25

== ENCOUNTER 2020-06-22 13:00 | Emergency (ER) | payer OTHER ==
[2020-06-22 13:07] VITALS: BP 156/92; PULSE 81; TEMP 99.1; BMI 36.6
== END 2020-06-22 16:19 | disposition home or self-care (01) ==
LOC: JER 13:00
DX: U07.1 COVID-19 (principal)
CPT/HCPCS: 71046-TC-FY; 99284-25; C9803; U0003

== ENCOUNTER 2021-02-22 12:47 | Emergency (ER) | payer OTHER ==
[2021-02-22 13:01] VITALS: BP 143/78; PULSE 85; TEMP 98.3; BMI 36.1
== END 2021-02-22 13:50 | disposition home or self-care (01) ==
LOC: JERFT 12:47 → JER 12:47 → JERFT 13:50
DX: H10.31 Unspecified acute conjunctivitis, right eye (principal)
CPT/HCPCS: 99283-25

== ENCOUNTER 2021-05-01 18:37 | Emergency (ER) | payer OTHER ==
[2021-05-01 19:07] VITALS: BP 130/79; PULSE 84; TEMP 98.3; BMI 36.6
== END 2021-05-01 20:50 | disposition home or self-care (01) ==
LOC: JERFT 18:37
DX: M77.01 Medial epicondylitis, right elbow (principal)
CPT/HCPCS: 73070-TC-RT-FY; 99283-25

== ENCOUNTER 2023-04-20 12:22 | Emergency (ER) | payer OTHER ==
[2023-04-20 13:04] VITALS: BP 126/76; PULSE 76; RESP 18; TEMP 98.6; BMI 36.6
== END 2023-04-20 14:24 | disposition home or self-care (01) ==
LOC: JERFT 12:22
PROC: 2W3KX1Z Immobilization of Left Finger using Splint (ICD-10-PCS; principal; 2023-04-20)
DX: S62.643A Nondisplaced fracture of proximal phalanx of left middle finger, initial encounter for closed fracture (principal); R22.42 Localized swelling, mass and lump, left lower limb; M79.645 Pain in left finger(s)
CPT/HCPCS: 73140-TC-LT-FY; 99283-25

== ENCOUNTER 2023-08-04 18:31 | Emergency (ER) | payer OTHER ==
[2023-08-04 18:35] VITALS: RESP 18; BMI 34.9
[2023-08-04 21:44] VITALS: BP 157/69; PULSE 92; TEMP 98.8
== END 2023-08-04 21:47 | disposition home or self-care (01) ==
LOC: JERFT 18:31
DX: S96.912A Strain of unspecified muscle and tendon at ankle and foot level, left foot, initial encounter (principal); S46.912A Strain of unspecified muscle, fascia and tendon at shoulder and upper arm level, left arm, initial encounter; R11.10 Vomiting, unspecified; X50.9XXA Other and unspecified overexertion or strenuous movements or postures, initial encounter
CPT/HCPCS: 36415; 73030-TC-LT-FY; 73610-TC-LT-FY; 84703; 99284-25